=== PATIENT | male | born 1950 | race Caucasian/White ===

== ENCOUNTER 2024-06-26 15:16 | Inpatient (IN) | payer MEDICARE, OTHER, SELFPAY ==
[2024-06-26] VITALS (7 sets, daily range): BP systolic 113–126; BP diastolic 49–64; PULSE 44–99; RESP 13–16; TEMP 36.5–37; O2SAT 95–100; BMI 24.5
--- NOTE | ~2024-06-26 | CT_ITS ---
EXAMINATION: CT brain wo con DATE: 06/26/2024 17:06 INDICATION: Syncope . TECHNIQUE: Computed tomography (CT) of the head was performed without intravenous contrast. The mA wa s adjusted according to patient size. Iterative reconstruction technique was employed. The dose-lengt h product was 605.33 mGy-cm. COMPARISON: None. FINDINGS: No acute intracranial hemorrhage or extra-axial fluid collection. No hydrocephalus, mass, or herniation. No acute ischemic infarct. Unremarkable dural venous sinus attenuation. No acute osseous abnormality. Occipital scalp swelling/hematoma, to the right of midline. The aerated spaces are clear. Mild atrophy and chronic white matter change. Atherosclerotic intracranial calcifications. Focal old right basal ganglia lacunar infarct. IMPRESSION: No acute intracranial process. Reviewed, dictated and finalized at location K. NESS ADMINISTRATION PROGRAM CHAIR
--- NOTE | ~2024-06-26 | XR_ITS ---
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 RESULT: Lines, tubes, and devices: Soft tissue anchors in the left humeral head. Lungs and pleura: Clear. Calcified pulmonary granuloma. Cardiomediastinal silhouette: Normal heart size. Calcified lymph nodes. Other: No acute osseous or upper abdominal finding. IMPRESSION: No acute cardiopulmonary process. Reviewed, dictated and finalized at location K. RY MACHINE MECHANIC SUPERVISOR
--- NOTE | 2024-06-26 15:30 | ECG_ITS ---
Test Date: 2024-06-26 18:32:34 Measurements Intervals [place] Rate: 73 P: 54 NV: 196 QRS: -15 QRSD: 158 T: 65 QT: 444 QTc: 490 Interpretive Statements SINUS RHYTHM LEFT BUNDLE BRANCH BLOCK BASELINE ARTIFACT- V5-V6 ABNORMAL ECG No previous ECG available for comparison Electronically Signed On 06-26-2024 19:21:15 MANAGER RETIREMENT by Phani Peñaloza D.O.
[2024-06-26 15:46] LABS: Basophils Percent Auto 0.2 % (0.2-1.2); Eosinophils Absolute Auto 0.1 K/mm3 (0-0.3); Eosinophils Percent Auto 1.5 % (0-4.4); Hematocrit 39.3 % (42.0-52.0); Hemoglobin 13.3 g/dL (14.0-18.0); Immature Granulocyte Absolute 0.02 K/mm3 (0.00-0.031); Immature Granulocyte Percent A 0.2 % (0-0.5); Lymphocytes Absolute Auto 1.72 K/mm3 (0.9-3.2); Lymphocytes Percent Auto 21.4 % (18.3-44.2); Mean Corpuscular HGB Conc 33.8 g/dl (32-36); Mean Corpuscular Hemoglobin 32.1 pg (26-34); Mean Corpuscular Volume 94.9 fl (80-100); Mean Platelet Volume 9.8 fl (7.4-10.4); Monocytes Absolute Auto 0.9 K/mm3 (0.1-0.6); Monocytes Percent Auto 10.7 % (2.6-8.5); Neutrophils Absolute Auto 5.3 K/mm3 (1.3-6.7); Platelet Count Result 194 k/mm3 (150-375); Red Blood Count 4.14 M/mm3 (4.6-6.20); Red Cell Distribution Width 12.6 % (11.5-14.5)
--- NOTE | 2024-06-26 15:48 | ECG_ITS ---
Test Date: 2024-06-26 15:35:53 Measurements Intervals [place] Rate: 75 P: 72 MD: 202 QRS: -27 QRSD: 161 T: 70 QT: 438 QTc: 491 Interpretive Statements SINUS RHYTHM BORDERLINE AV CONDUCTION DELAY LEFT BUNDLE BRANCH BLOCK BASELINE ARTIFACT- II, III, AVF ABNORMAL ECG COMPARED WITH PRIOR ECG 06-26-24 15:23 HEART RATE HAS INCREASED SECOND DEGREE AV BLOCK NO LONGER PRESENT Electronically Signed On 06-27-2024 07:57:13 UNIX CONSULTANT by Phani Peñaloza D.O.
--- NOTE | 2024-06-26 15:52 | ED_ITS ---
HPI - Arrhythmia/Palpitations General Chief Complaint: Arrhythmia/Palpitations Stated Complaint: syncopal Time Seen by Provider: 06/26/24 15:25 History of Present Illness HPI narrative: 74-year-old male with a past medical history including hypertension, chronic left bundle branch block, hyperlipidemia. Patient takes aspirin, lipid medication, Coreg. Patient presents to the emergency room with chief complaint of a syncopal event. Patient presents via EMS. Patient was at home when he started feeling lightheaded and dizzy while he was standing and he fell from standing height. Patient does not remember the event, woke up very briefly thereafter. Complains of nauseousness and lightheadedness. Found to be bradycardic with a rate of 36 by EMS with concerns for third-degree AVB block. Patient had normal vital signs and was awake and alert, no pacing or cardioactive medications provided. He states he did not take his morning dose of Coreg and his last dose of Coreg was yesterday morning. Typically takes it b.i.d.. He received Zofran around for his nausea. Presently is denying any chest pain, shortness a breath, headache, vision changes, neck pain, abdominal pain, back pain. He states he just feels lightheaded. Denies any history of cardiac stents or IL and was otherwise in his normal state of health. Related Data Allergies Allergy/AdvReac Type Severity Reaction Status Date / Time ibuprofen AdvReac Mild Hives Verified 06/26/24 15:57 Review of Systems 2 Review of Systems: As reviewed above in HPI [facility] Past Medical History Medical History (Updated 06/26/24 @ 17:45 by JACEK BrownN-Lara) Left bundle branch block Dyslipidemia Hypertension Exam 2 Narrative: GENERAL: [Well-appearing, well-nourished, and in no acute distress.] HEAD: [Normocephalic, atraumatic.] EYES: [PERRLA and EOMI.] ENT: Nares clear, no rhinorrhea or epistaxis. Mucous membranes moist. NECK: Supple. CHEST: [Clear to auscultation. No respiratory distress.] HEART: Bradycardic rate but seemingly regular rhythm. No murmur heard. [Normal peripheral pulses.] ABDOMEN: [Soft, nondistended], [nontender], [No rigidity or guarding] EXTREMITIES: Normal range of motion. [No edema.] SKIN: Warm, dry, no rash. NEURO: [No focal deficits]. Alert and oriented [x3.] PSYCH: [Normal mood and affect.] Course Vital Signs Vital signs: Vital Signs Temperature 36.5 C 06/26/24 15:13 Pulse Rate 44 L 06/26/24 15:13 Respiratory Rate 14 06/26/24 15:13 Blood Pressure 122/55 L 06/26/24 15:13 Pulse Oximetry 100 06/26/24 15:13 Oxygen Delivery Room Air 06/26/24 15:13 Temperature 36.5 C 06/26/24 15:13 Pulse Rate 81 06/26/24 16:36 Respiratory Rate 13 06/26/24 16:36 Blood Pressure 126/64 06/26/24 16:36 Pulse Oximetry 100 06/26/24 16:36 Oxygen Delivery Room Air 06/26/24 15:13 MDM - Arrhythmia/Palpitations MDM Narrative Medical decision making narrative: 74-year-old male with a history of chronic left bundle branch block presenting to the emergency department with a syncopal event and bradycardia. He was otherwise in his normal state of health, felt lightheaded at home and fell to the ground. He woke up several seconds later and has been complain of nauseousness and feeling like he could pass out again. Was found to be bradycardic with rate in the 30s and seemingly in a AV blockade via EMS interpretation of EKG. He took his Coreg last dose yesterday morning and has not taken any additional ones today or last night. No recent changes to his medications. He is bradycardic with a palpable pulse in the 30s to 40s but is seemingly normal rhythm, extremities are warm, he is awake alert, no diaphoresis, chest pain shortness a breath. Normal blood pressure, no tachycardia, fever, hypoxia or tachypnea. EKG was obtained that shows sinus bradycardia with what appears to be a prolonged first-degree AV block and a PVC that was noted but does not appear to be any AV dissociation with regular P-waves behind each QRS and QRS complexes after each P wave. Patient was placed on supreme court justice and pads and spontaneously resolved his bradycardia and on the monitor appears to be sinus rhythm with regular rate. Repeat EKG showed at that time a left bundle branch block with sinus rhythm with no ST segment elevations, depressions or inversions, no previous EKG from prior to today to compare to but he states he has a chronic LBBB. Cardiac workup was obtained this time including serial troponins, electrolyte panel, CBC, chest x-ray. He was provided fluid bolus and Zofran here in the ED and remains asymptomatic at this time. CT of the head was obtained given the fall and syncopal event. Comparing the morphology of his present EKG with the 1 when he was bradycardic it seems like he may have had a vasovagal event as appears to have similar morphology in just a slowing of his ventricular rate, however underlying structural disease, ACS, electrolyte disturbances or other cardiac process cannot be excluded at this time and patient would likely be admitted to the hospital after completion of workup and discussion with Cardiology. Patient re-evaluated frequently and had no persistent symptoms or recurrence of his syncopal event while here in the emergency department. Negative troponin, normal electrolytes, no leukocytosis or anemia. Normal LFTs and normal renal function panel. Spoke to Cardiology Dr. Olivas and relayed the EKGs to them. There appears to be a high degree AV block with escape rhythm and no actual association between his P-waves and ventricular complexes. Recommendations to admit him to the intermediate care unit for pacemaker placement unless he becomes unstable and then he would need temporary pacing. I discussed this with the patient and the family and they were comfortable with admission. Spoke to the hospitalist team currently being covered by the midlevel provider who accepted the patient to the intermediate care unit. Admission orders were placed, consult placed, patient is stable for admission at this time. Medical Records Attestation: I reviewed the patient's medical records. Lab Data Attestation: I reviewed the patient's lab results. 06/26/24 15:41 06/26/24 15:41 Labs: Lab Results 06/26/24 Range/Units 15:41 WBC 8.0 (4.5-10.0) K/mm3 RBC 4.14 L (4.6-6.20) M/mm3 Hgb 13.3 L (14.0-18.0) g/dL Hct 39.3 L (42.0-52.0) % MCV 94.9 (80-100) fl MCH 32.1 (26-34) pg MCHC 33.8 (32-36) g/dl RDW 12.6 (11.5-14.5) % Plt Count 194 (150-375) k/mm3 MPV 9.8 (7.4-10.4) fl Immature Gran % (Auto) 0.2 (0-0.5) % Neut % (Auto) 66.0 (45.5-73.1) % Lymph % (Auto) 21.4 (18.3-44.2) % [place] % (Auto) 10.7 H (2.6-8.5) % Eos % (Auto) 1.5 (0-4.4) % Baso % (Auto) 0.2 (0.2-1.2) % Lymph # (Auto) 1.72 (0.9-3.2) K/mm3 [place] # (Auto) 0.9 H (0.1-0.6) K/mm3 Eos # (Auto) 0.1 (0-0.3) K/mm3 Baso # (Auto) 0.0 (0.0-0.1) K/mm3 Abs Immat Gran (auto) 0.02 (0.00-0.031) K/mm3 Absolute Neuts (auto) 5.3 (1.3-6.7) K/mm3 Absolute Nucleated RBC 0.000 (0.0-0.012) K/mm3 Nucleated RBC % 0.0 (0.0-0.2) % PT 13.0 (11.1-14.7) Seconds INR 0.9 APTT 22.7 (22.3-36.8) Seconds Sodium 139 (137-145) mmol/L Potassium 4.6 (3.4-5.0) mmol/L Chloride 106 (98-107) mmol/L Carbon Dioxide 23 (22-30) mmol/L Anion Gap 10 (4-12) mmol/L BUN 29 H (9-20) mg/dL Creatinine 1.16 (0.7-1.3) mg/dL Estim Creat Clear Calc 47 ml/min Estimated GFR > 60 (59 - ) Glucose 128 H (65-110) mg/dL Calcium 9.3 (8.4-10.2) mg/dL Total Bilirubin 0.6 (0.2-1.3) mg/dL AST 25 (17-59) U/L ALT 22 (6-50) U/L Alkaline Phosphatase 88 (38-126) U/L Troponin I < 0.012 (0.000-0.034) ng/mL Total Protein 7.0 (6.3-8.2) g/dL Albumin 4.0 (3.5-5.1) g/dL Lipase 90 (23-300) U/L Imaging Data Attestation: I personally reviewed and interpreted this imaging study as follows: My impression: Impressions Chest X-Ray 06/26/24 15:56 IMPRESSION: No acute cardiopulmonary process. Head CT 06/26/24 17:23 IMPRESSION: No acute intracranial process. Critical Care Time Critical Care Time Critical Care Time: Yes Total Critical Care Time: 35 Discharge Plan Discharge Clinical Impression: High degree atrioventricular block, Cardiac related syncope Patient Disposition: Still a Patient Condition: Stable Patient Language: Norwegian Follow-up/Referrals: PHYSICIAN NOT ON STAFF,NONSTAFF [Primary Care Provider] - Time of Disposition: 17:45
[2024-06-26] MEDS: Please add drug allergy info to patient profile. 1 EACH XX (15:55)
[2024-06-26 15:56] LABS: Alanine Aminotransferase 22 U/L (6-50); Alkaline Phosphatase 88 U/L (38-126); Anion Gap 10 mmol/L (4-12); Aspartate Amino Transferase 25 U/L (17-59); Bilirubin,Total 0.6 mg/dL (0.2-1.3); Blood Urea Nitrogen 29 mg/dL (9-20); Calcium 9.3 mg/dL (8.4-10.2); Carbon Dioxide 23 mmol/L (22-30); Chloride 106 mmol/L (98-107); Estimated CRCL calculation 47 ml/min; Estimated Glomerular Filt Rate > 60; Glucose 128 mg/dL (65-110); Lipase 90 U/L (23-300); Potassium 4.6 mmol/L (3.4-5.0); Sodium 139 mmol/L (137-145)
[2024-06-26 15:57] LABS: INR 0.9; Partial Thromboplastin Time 22.7 Seconds (22.3-36.8)
[2024-06-26] MEDS: ASPIRIN 81 MG CHEWABLE TABLET 324 MG PO (15:59)
--- OUTSIDE RECORDS SUMMARY | 2024-06-26 16:00 | XMS_ITS | CONTINUITY OF CARE DOCUMENT ---
Author Name aleyda aishajerrica Address Unknown Organization [facility] Address [address] [place] [address] [address] [place] [address] Phone [phone] Care Team Providers Care Transition Manager Name Role Phone Vincent RENDON, Ronak Unavailable [phone] MADYSON VELÁZQUEZ MD Unavailable MADYSON VELÁZQUEZ MD Unavailable PROBLEMS Condition Status Date Provider Notes CARDIOMYOPATHY active ? Jonathon Ko MD HTN ESSENTIAL active ? Jonathon Ko MD Hyperlipidemia, unspecified active Deidra Arambula CHF active Jonathon Ko MD LBBB active Jonathon Ko MD ENCOUNTERS Date Type Provider Location Encounter Diag nosis - In-person encounter Office Visit MADYSON VELÁZQUEZ MD [place] [facility] - In-person encounter Office Visit MADYSON VELÁZQUEZ MD [place] [facility] - In-person encounter Office Visit MADYSON VELÁZQUEZ MD [place] [facility] - In-person encounter Office Visit MADYSON VELÁZQUEZ MD [place] [facility] - In-person encounter Office Visit MADYSON VELÁZQUEZ MD [place] [facility] - In-person encounter Office Visit MADYSON VELÁZQUEZ MD [place] [facility] - In-person encounter Office Visit MADYSON VELÁZQUEZ MD [place] [facility] - In-person encounter Office Visit MADYSON VELÁZQUEZ MD [place] [facility] - In-person encounter Office Visit MADYSON VELÁZQUEZ MD [place] [facility] - In-person encounter Office Visit MADYSON VELÁZQUEZ MD [place] [facility] - In-person encounter Office Visit MADYSON VELÁZQUEZ MD [place] [facility] - In-person encounter [facility] - In-person encounter Office [facility] - In-person encounter Office [facility] - In-person encounter Office [facility] - In-person encounter Office [facility] - In-person encounter Office Visit [facility] [place] [facility] - In-person encounter Office Visit Jonathon Ko MD [place] [facility] - In-person encounter Office Visit [facility] [place] [facility] - In-person encounter Office Visit Jonathon Ko MD [place] [facility] CHFLBBB - In-person encounter Office Visit Jonathon Ko MD [place] [facility] - In-person encounter Office Visit Jonathon Ko MD [place] [facility] CARDIOMYOPATHYHTN ESSENTIALHyperlipidemia, unspecified VITAL SIGNS Date Observation Value Provider blood pressure, diastolic, left arm 77 mm [Hg] Shoaib Garrett blood pressure, systolic, left arm 128 mm [Hg] Shoaib Garrett blood pressure, diastolic, right arm 74 m m[Hg] Shoaib Garrett blood pressure, systolic, right arm 120 m m[Hg] Shoaib Garrett blood pressure, diastolic 74 mm[Hg] Florinda seph [place] blood pressure, systolic 120 mm[Hg] Daryn eph [place] pulse rate 69 /min Shoaib [place] oxygen saturation, oximetry 98 % Shoaib [place] respiratory rate E&M 16 /min Shoaib Man[place] weight E&M 152 [lb_av] Shoaib Garrett blood pressure, diastolic 77 mm[Hg] Maradiaga blood pressure, systolic 138 mm[Hg] Blaise Fowler pulse rate 76 /min Wayne Fowler oxygen saturation, oximetry 98 % Wayne Fowler respiratory rate E&M 16 /min Wayne oFwler weight E&M 150 [lb_av] Wayne Fowler weight E&M 150 [lb_av] Luly Lindsey height E&M 67 [in_i] Luly Lindsey blood pressure, diastolic 69 mm[Hg] Bravo rosas O'Navdeep blood pressure, systolic 125 mm[Hg] Swati worthington [facility] pulse rate 74 /min Peri O'Navdeep oxygen saturation, oximetry 97 % Peri O'Navdeep respiratory rate E&M 16 /min Peri O'Navdeep weight E&M 150 [lb_av] Peri O'Navdeep blood pressure, diastolic 55 mm[Hg] [place] blood pressure, systolic 108 mm[Hg] Blaise Fowler pulse rate 70 /min Wayne Fowler oxygen saturation, oximetry 100 % Wayne Fowler respiratory rate E&M 16 /min Wayne Fowler weight E&M 150 [lb_av] Wayne Fowler RESULTS Date Observation Value Provider Reference Range Interpretation Location hemoglobin A1C, blood, as % of total hemoglobin 5.3 % OF TOTAL HGB [facility] <5.7 Normal basophils as percent of blood leukocytes 0.1 % [facility] Normal eosinophils as percent of blood leukocytes 0.7 % [facility] Normal monocyte count, blood 7.6 % [facility] Normal lymphocyte count, blood 12.0 % [facility] Normal neutrophils as percent of blood leukocytes 79.6 % [facility] Normal basophils, absolute, manual 9 cells/mcL [facility] 0-200 Normal eosinophils, absolute, manual 60 cells/mcL [facility] 15-500 Normal monocytes, absolute, manual 646 cells/mcL [facility] 200-950 Normal lymphocytes, absolute 1020 CELLS/UL [facility] 850-3900 Normal Absolute Neutrophil count 6766 cells/mcL [facility] 7490-9060 Normal mean platelet volume 10.0 fL [facility] 7.5-12.5 Normal platelet count 210 THOUSAND/UL [facility] 140-400 Normal red blood cell distribution width 12.3 % [facility] 11.0-15.0 Normal mean corpuscular hemoglobin concentration, RBC 34.0 G/DL [facility] 32.0-36.0 Normal mean corpuscular hemoglobin, RBC 33.5 pg [facility] 27.0-33.0 High mean corpuscular volume, RBC 98.5 fL [facility] 80.0-100.0 Normal hematocrit, blood 39.1 % [facility] 38.5-50.0 Normal hemoglobin electrophoresis, blood 13.3 [facility] 13.2-17.1 Normal erythrocyte (RBC) count 3.97 MILLION/UL [facility] 4.20-5.80 Low leukocyte (white blood cells) count, blood 8.5 THOUSAND/UL [facility] 3.8-10.8 Normal alanine aminotransferase (SGPT), serum 17 1/L [facility] 9-46 Normal aspartate aminotransferase (SGOT), serum 20 1/L [facility] 10-35 Normal alkaline phosphatase, serum 67 1/L [facility] 40-115 Normal bilirubin, serum, total 0.6 mg/dL [facility] 0.2-1.2 Normal albumin/globulin ratio, serum 1.6 (calc) [facility] 1.0-2.5 Normal globulins, serum, total 2.6 G/DL (CALC) [facility] 1.9-3.7 Normal albumin, serum 4.1 g/dL [facility] 3.6-5.1 Normal protein, total, serum 6.7 g/dL [facility] 6.1-8.1 Normal calcium, serum 9.5 mg/dL [facility] 8.6-10.3 Normal carbon dioxide, venous blood 28 mmol/L [facility] 20-31 Normal chloride, serum 101 mmol/L [facility] 98-110 Normal potassium, serum 4.2 mmol/L [facility] 3.5-5.3 Normal sodium, serum 136 mmol/L [facility] 135-146 Normal urea nitrogen/creatinine ratio, serum NOT APPLICABLE (calc) [facility] 6-22 Estimated Glomerular Filtration Rate (calc) 84 mL/min/{1.73_ m2} [facility] > OR = 60 Normal creatinine, serum 1.05 mg/dL [facility] 0.70-1.25 Normal urea nitrogen, blood 18 mg/dL [facility] 7-25 Normal blood glucose, random 111 mg/dL [facility] 65-99 High cholesterol, non-HDL, total 110 MG/DL (CALC) [facility] Normal cholesterol/HDL ratio, serum, percent 2.7 (calc) [facility] < OR = 5.0 Normal LDL cholesterol, serum 70 MG/DL (CALC) [facility] <130 Normal triglyceride, serum, fasting 200 mg/dL [facility] <150 High HDL cholesterol, serum 63 mg/dL [facility] > OR = 40 Normal cholesterol, serum 173 mg/dL [facility] 125-200 Normal HISTORY OF MEDICATION USE Medication Status Instructions Dates Provider Indications Com ments MAGNESIUM TABLET completed 1 tablet by mouth daily - MADYSON VELÁZQUEZ MD FISH OIL 1000 MG ORAL CAPSULE completed 1 capsule by mouth daily - MADYSON VELÁZQUEZ MD VITAMIN C TABLET completed 1 tablet by mouth daily - MADYSON VELÁZQUEZ MD MULTIVITAMINS TABS completed 1 tablet by mouth daily - MADYSON VELÁZQUEZ MD LISINOPRIL 10 MG ORAL TABLET active half a TAB. twice DAILY Jonathon Ko MD SPIRONOLACTONE 25 MG ORAL TABLET active ONE TAB. DAILY Jonathon Ko MD COREG 12.5 MG ORAL TABLET active ONE TABLET TWICE DAILY MADYSON VELÁZQUEZ MD increased from 1/2 tablet daily LORAZEPAM 0.5 MG ORAL TABLET active ONE TABLET IN THE EVENING NEEDED MADYSON VELÁZQUEZ MD ASPIRIN 81 MG ORAL TABLET active ONE TAB. DAILY Navjot Augustin RN LIPITOR 10 MG ORAL TABLET active ONE TAB. DAILY Navjot Augustin RN NORVASC 10 MG ORAL TABLET completed ONE TAB. DAILY - Peri O'Navdeep LIDODERM PATCH completed to heels - Navjot Augustin RN TOPICORT CREAM completed twice daily as needed - Navjot Augustin RN DICLOFENAC POTASSIUM TABLET completed 75mg daily - Navjot Augustin RN LORAZEPAM TABLET completed 1mg daily as needed - Navjot Augustin RN ASPIRIN 81 MG ORAL TABLET completed ONE TAB. DAILY - Navjot Augustin RN LIPITOR 10 MG ORAL TABLET completed ONE TAB. DAILY - Navjot Augustin RN AMLODIPINE BESYLATE 10 MG ORAL TABLET completed 1/2 TAB.twice daily - Navjot Augustin RN SOCIAL HISTORY Date Observation Value Provider smoking status never smoker Deidra wright passive cigarette sm eugene exposure no Jonathon Ko MD social history reviewed E&M reviewed Jonathon Ko MD social history reviewed E&M reviewed Navjot Augustin RN smoking/tobacco cess ation, patient education and counseling yes Jonathon Ko MD social history reviewed E&M reviewed Jonathon Ko MD drug use none Jonathon jimenez MD social history E&M Marital Statu s: L krunal with family/friends E thnicity: Navjot Augustin RN social history reviewed E&M reviewed Navjot Augustin RN physical exercise, frequency, days per week yes [facility] caffeine use, averag e drinks per day yes [facility] alcohol use, average drinks per day none [facility] smoking status Non-smoker [facility] MENTAL STATUS Date Observation Value Provider assessment of judgme nt and insight E&M Alert and oriented to time, place and person. Mood and affect are normal. Jonathon Ko MD assessment of judgme nt and insight E&M Alert and oriented to time, place and person. Mood and affect are normal. Navjot Augustin RN assessment of judgme nt and insight E&M Alert and oriented to time, place and person. Mood and affect are normal. Jonathon Ko MD assessment of judgme nt and insight E&M Alert and oriented to time, place and person. Mood and affect are normal. Navjot Augustin RN INSURANCE PROVIDERS Payer name Policy type / Coverage type [place] [employer] party ID AARP MEDICARE ADVANTAGE ([facility] COMPLETE PPO) Other [id number] TREATMENT PLAN Date Name Complete Echo MUGA (LVEF) HISTORY OF PROCEDURES Procedure Date Procedure Name Provider Procedure Notes S dreadus EKG Jonathon Ko MD comp leted
--- OUTSIDE RECORDS SUMMARY | 2024-06-26 16:00 | XMS_ITS | Clinical Summary ---
Author Organization [facility] Address [address] [place] [address] Care Team Providers Care Electrolysis Operator Name Role Phone Unavailable Primary Care Provider Unavailabl e Source Comments [facility],non-owned Affiliates and Associated Physician Practices is amultiple site organization consisting of ambulatory clinics and hospital sitesin [place], [place], [place] and [place]. This disclosure is being madepursuant to the Care Everywhere program and may not contain all information available regarding this patient. Last updated 18.[facility] [place] Social History Tobacco Use Types Packs/Day Years Used Date Smoking Tobacco: Never Assessed Sex and Gender Information Value Date Recorded Sex Assigned at Not on file Gender Identity Not on file Sexual Orientation Not on file Plan of Treatment Health Maintenance Due Date Last Done Comments HEPATITIS C SCREENING 02/21/1966 DTAP/TDAP/TD VACCINES (1 - Tdap) 02/25/1967 PNEUMOCOCCAL VACCINE 50+ (1 of 1 - PCV) 02/25/1998 ZOSTER VACCINE (1 of 2) 02/25/1998 Respiratory Syncytial Virus (RSV) Vaccine Pt: or over 60 yrs (1 - 1-dose 75+ series) 02/25/2023 COVID-19 VACCINE ( - 2023-2 5 season) 2024 INFLUENZA VACCINE (#1) 2024 DEPRESSION SCREENING 05/19/2024 MEDICARE AWV CALENDAR YEAR 2024 HEPATITIS B VACCINE Aged Out No longe r eligible based on patient's age to complete this topic HIB VACCINE Aged Out No longer eligi ble based on patient's age to complete this topic HPV VACCINE Aged Out No longer eligi ble based on patient's age to complete this topic MENINGOCOCCAL (Group B) VACCINE Aged Out No longer eligible based on patient's age to complete this topic MENINGOCOCCAL VACCINE Aged Out No caridad molly eligible based on patient's age to complete this topic
--- OUTSIDE RECORDS SUMMARY | 2024-06-26 16:00 | XMS_ITS | Encounter Summary ---
Author Organization [facility] Address [address] [place] [address] Care Team Providers Care Interim Controller Name Role Phone Unavailable Primary Care Provider Unavailabl e Encounter Details Date Type Department Care Team (Late st Contact Info) Description 10/20/2018 Lab Requisition [facility] Care DermPath Lab [address] [place] [phone] Jorgito Car MD [address] [place] [phone] Social History Tobacco Use Types Packs/Day Years Used Date Smoking Tobacco: Never Assessed Sex and Gender Information Value Date Recorded Sex Assigned at Not on file Gender Identity Not on file Sexual Orientation Not on file documented as of this encounter Plan of Treatment Not on file documented as of this encounter Procedures Procedure Name Priority Date/Time Associated Diagnosis Comments DERMATOPATHOLOGY Routine 10/19/2018 12:0 0 AM CDT documented in this encounter Results * DERMATOPATHOLOGY (10/19/2018 12:00 AM CDT) Case Report Dermatopathology Report Case: [id number] Authorizing Provider: Jorgito Car MD Collected: 10/19/2018 12:00 AM Pathologist: Radha Ness MD Received: 10/20/2018 12:43 PM Specimen: Skin, right forehead 9 1:00 PM CDT DERMATOPATHOLOGY LABORATORY Final Diagnosis Specimen A. SKIN, right forehead: COMEDONE (L70.8) DERMAL FIBROSIS (L90.5) 9 1:00 PM CDT DERMATOPATHOLOGY LABORATORY Clinical History R/O BCC 1:00 PM CDT DERMATOPATHOLOGY LABORATORY Gross Description Specimen A: Received is one formalin filled container labeled with the patient's name and designated right forehead. The specimen consists of a shave biopsy measuring 9x6x1 mm. Jar 0. 1:00 PM CDT DERMATOPATHOLOGY LABORATORY Microscopic Description Specimen A. 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 There is focal dermal fibrosis. 1:00 PM CDT DERMATOPATHOLOGY LABORATORY Disclaimer An external and internal positive and negative controls are appropriate for the histochemical, immunohistochemical and immunofluorescence stain(s) in this case (if any), except where stated explicitly. The performance characteristics of the stain(s) cited in this report were developed and its performance characteristic determined by the Dermatopathology Laboratory at [facility], directed by Dr. Addie Ortiz. These tests need not be, and therefore are not, approved by the [place] Food and Drug Administration. The tests are used for clinical purposes. Billing Codes Specimen Charges Stain Charges 39949 1 1:00 PM CDT DERMATOPATHOLOGY LABORATORY Embedded Images 1:00 PM CDT DERMATOPATHOLOGY LABORATORY Pathology/Cytolog y TISSUE SPECIMEN FROM SKIN / Unknown 10/19/2018 10/20/2018 12:43 PM CDT Jorgito Car MD LAB - PATHOLOGY/CYTO LOGY ORDERABLES DERMATOPATHOLOGY LABORATORY [facility] - Department of Dermatology [facility] [facility] [address]th [address] [place], [place] [address] [phone] documented in this encounter Visit Diagnoses Not on filedocumented in this encounter
--- OUTSIDE RECORDS SUMMARY | 2024-06-26 16:00 | XMS_ITS | Encounter Summary ---
Author Organization [facility] Address [address] [place] [address] Care Team Providers Care Pharmacy Technician Trainee Name Role Phone Unavailable Primary Care Provider Unavailabl e Encounter Details Date Type Department Care Team (Late st Contact Info) Description 09/02/2023 Lab Requisition [facility] - DermPath Lab [address] [place] [phone] Jorgito Car MD [address] [place] [phone] Social History Tobacco Use Types Packs/Day Years Used Date Smoking Tobacco: Never Assessed Sex and Gender Information Value Date Recorded Sex Assigned at Not on file Gender Identity Not on file Sexual Orientation Not on file documented as of this encounter Plan of Treatment Not on file documented as of this encounter Procedures Procedure Name Priority Date/Time Associated Diagnosis Comments DERMATOPATHOLOGY Routine 09/01/2023 3:33 AM CDT documented in this encounter Results * DERMATOPATHOLOGY (09/01/2023 3:33 AM CDT) Case Report Dermatopathology Report Case: [id number] Authorizing Provider: Jorgito Car MD Collected: 09/01/2023 03:33 AM Ordering Location: [facility] Physician [facility] - Received: 09/02/2023 12:45 PM DermPath Lab Pathologist: Radha Ness MD Specimen: Skin, left nose 10:55 AM CDT DERMATOPATHOLOGY LABORATORY Final Diagnosis Specimen A. SKIN, left nose: BASAL CELL CARCINOMA, NODULAR TYPE (C44.311) 10:55 AM CDT DERMATOPATHOLOGY LABORATORY Clinical History Cyst r/o BCC 10:55 AM CDT DERMATOPATHOLOGY LABORATORY Gross Description Specimen A: Received is one formalin filled container labeled with the patient's name and designated left nose. The specimen consists of a shave biopsy measuring 6x5x3 mm. Jar 0. 10:55 AM T DERMATOPATHOLOGY LABORATORY Microscopic Description Specimen A. SKIN, left nose: Within the dermis there are aggregates of basaloid cells with a high nuclear to cytoplasmic ratio and peripheral palisading. 10:55 AM T DERMATOPATHOLOGY LABORATORY Disclaimer An external and internal positive and negative controls are appropriate for the histochemical, immunohistochemical and immunofluorescence stain(s) in this case (if any), except where stated explicitly. The performance characteristics of the stain(s) cited in this report were developed and its performance characteristic determined by the Dermatopathology Laboratory at [facility], directed by Dr. Addie Ortiz. These tests need not be, and therefore are not, approved by the [place] Food and Drug Administration. The tests are used for clinical purposes. Billing Codes Specimen Charges Stain Charges 10388 1 4 10:55 AM CDT DERMATOPATHOLOGY LABORATORY Embedded Images 10:55 AM T DERMATOPATHOLOGY LABORATORY Pathology/Cytolo gy TISSUE SPECIMEN FROM SKIN / Unknown 09/01/2023 3:33 AM CDT 09/02/2023 12:45 PM CDT Jorgito Car MD LAB - PATHOLOGY/CYTO LOGY ORDERABLES DERMATOPATHOLOGY LABORATORY [facility] - Department of Dermatology [address] [phone] documented in this encounter Visit Diagnoses Not on filedocumented in this encounter
--- OUTSIDE RECORDS SUMMARY | 2024-06-26 16:00 | XMS_ITS | Referral Summary ---
Author Organization [facility] Address [address] [place] [address] Care Team Providers Care Supervisor Border Department Name Role Phone Unavailable Primary Care Provider Unavailabl e Source Comments [facility],non-owned Affiliates and Associated Physician Practices is amultiple site organization consisting of ambulatory clinics and hospital sitesin [place], [place], [place] and [place]. This disclosure is being madepursuant to the Care Everywhere program and may not contain all information available regarding this patient. Last updated 18.[facility] [employer] Social History Tobacco Use Types Packs/Day Years Used Date Smoking Tobacco: Never Assessed Sex and Gender Information Value Date Recorded Sex Assigned at Not on file Gender Identity Not on file Sexual Orientation Not on file Plan of Treatment Not on file
--- OUTSIDE RECORDS SUMMARY | 2024-06-26 16:00 | XMS_ITS | Clinical Summary ---
Author Organization [address] Address [address] [place] [address] Care Team Providers Care Acoustic Intelligence Specialist Name Role Phone Mark Neely MD Primary Care Provider [phone] Allergies Active Allergy Reactions Criticality Noted Date Comments Codeine Rash Medium 03/15/2019 Oxycodone Rash Medium 08/01/2011 Medications atorvastatin (LIPITOR) 10 mg tablet Take 10 mg by mouth daily. Active carvedilol (COREG) 25 mg tablet Take 25 mg by mouth 2 (two) times a day with meals. Active spironolactone (ALDACTONE) 25 mg tablet Take 25 mg by mouth daily. Active aspirin 81 mg tablet Take 81 mg by mouth daily. Active LORazepam (ATIVAN) 0.5 mg tablet Take 0.5 mg by mouth every 6 (six) hours as needed for anxiety. Active fluticasone (FLONASE) 50 mcg/actuation nasal sprayIndication s:Allergic disorder, initial encounter Administer 2 sprays into each nostril daily 16 g 3 9 Active moxifloxacin 0.5 % drops, viscous Administer 1 drop into affected eye(s) 2 (two) times a day 1 Bottle 9 Active Active Problems Problem Noted Date Diagnosed Date Right corneal abrasion 03/23/2019 Overview (03/23/2019): Patient having a hard time with the eye drop application. He is stating that most of the medication ran off the right eye. Refer to Dr [place]. Assessment & Plan (03/23/2019 8:27 AM ADMINISTRATIVE ASSISTANT COORDINATOR): Examined under UV light after fluorescein dye application. Viral URI 08/27/2018 Agent orange exposure 08/27/2018 Left otitis media 08/27/2018 Assessment & Plan (09/01/2018 10:22 AM CDT): Tympanic membrane is abnormal with loss of hearing. No cerumen impaction. 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 To RTC or call office for further concerns. Hypertension 06/03/2018 Hyperlipidemia 06/03/2018 Cardiomyopathy 06/03/2018 Anxiety 06/03/2018 Allergic 06/03/2018 Assessment & Plan (09/01/2018 10:23 AM CDT): Advised on use of antihistamine and flonase to limit nasal allergy symptoms. At low risk for fall 06/03/2018 Immunizations Name Administration Dates Next Due Influenza, Quadrivalent, Hig h Dose, Preservative Free, Intrr 02/22/2020 Influenza, Trivalent, High D ose, Split, Preservative Free, Intramuscular 02/18/2019 Influenza, Unspecified 03/15/2019,02/17/2018, Pneumococcal Conjugate PCV 13 02/22/2016 Pneumococcal Conjugate, Unspecified 01/31/2018 Pneumococcal Polysaccharide PPV23 03/12/2017 Surgical History Surgery Date Site/Laterality Comments SHOULDER SURGERY Shoulder Surgery - (Added by TW Conv) AR REPAIR BROW PTOSIS Repair Of Brow Ptosis - (Added by TW Conv) AR BLEPHAROPLASTY UPPER EYEL ID W/EXCESSIVE SKIN Blepharoplasty Upper Lid W/ Excessive Skin - (Added by TW Conv) AR BLEPHAROPLASTY LOWER EYEL ID W/HERNIATED FAT PAD Blepharoplasty Lower Lid W/ Extensive Herniated Fat Pad - (Added by TW Conv) SHOULDER DEBRIDEMENT Medical History Medical History Date Comments Allergic Anxiety Hyperlipidemia Hypertension Cardiomyopathy (HCC) Family History Medical History Relation Name Comments Kidney failure Brother Heart disease Father Family history of cardiac disorder - (Added by TW Conv) hip surgery Mother Relation Name Status Comments Brother Alive Father Mother Social History Tobacco Use Types Packs/Day Years Used Date Smoking Tobacco: Never Smokeless Tobacco: Never Tobacco Cessation:Counseling Given: No Alcohol Use Standard Drinks/Week Comments Yes 0 (1 standard drink = 0.6 oz pur e alcohol) PHQ-2 Answer Date Recorded PHQ-2 Score 0 01/08/2019 Personal Safety Answer Date Recorded Getting School Help Needed Not on file 08/01 Sex and Gender Information Value Date Recorded Sex Assigned at Not on file Legal Sex Male 9:09 PM ADMINISTRATIVE ASSISTANT COORDINATOR Gender Identity Not on file Sexual Orientation Not on file Obstetrics History Last Filed Vital Signs Vital Sign Reading Time Taken Comments Blood Pressure 118/68 03/23/2019 8:08 AM ADMINISTRATIVE ASSISTANT COORDINATOR Pulse 76 03/23/2019 8:08 AM ADMINISTRATIVE ASSISTANT COORDINATOR Temperature 37 C (98.6 F) 03/23/2019 8:08 AM ADMINISTRATIVE ASSISTANT COORDINATOR Respiratory Rate - - Oxygen Saturation 95% 03/23/2019 8:08 AM ADMINISTRATIVE ASSISTANT COORDINATOR Inhaled Oxygen Concentration - - Weight 69.3 kg (152 lb 11.2 oz) 019 8:08 AM ADMINISTRATIVE ASSISTANT COORDINATOR Height 172.7 cm (5' 8 ) 03/23/2019 8:08 AM ADMINISTRATIVE ASSISTANT COORDINATOR Body Mass Index 23.22 03/23/2019 8:08 AM ADMINISTRATIVE ASSISTANT COORDINATOR Plan of Treatment Not on file [place] [address] Care Teams Acoustic Intelligence Specialist Relationship Specialty Start Date End Date Mark Neely MD [address] [place], [place] [phone] PCP - General Family Practice 05/28/18
--- OUTSIDE RECORDS SUMMARY | 2024-06-26 16:00 | XMS_ITS | Continuity of Care Document ---
Author Organization [facility] Address [address] [place] [address] [address] [place] [address] Phone Care Team Providers Care Academic Tutor Name Role Phone Pedro Francis Unavailable Unavailable Advance Directives Directive Yes / No Effective Date File Name No Information Encounters Encounter Description Practice Location Reason(s) For Visit Diagnoses Date Provider Providers Copied on Encounter [facility], [address] [place] [address] [address], [place], [place], [id number], [place] tel:[phone] [facility] No Information [address] Penny Vasquez. [address] , [address], [place], [address], [place]. tel:[phone] Family History Family Member Type Diagnosis Age At Onset No Information Payers Payer name Insurance type Covered constitution party ID Authoriza tion(s) [employer] SOI CI [id number] Social History Type Description Quantity Date Captured Comments Sex Male Smoking Status No Information Chief Complaint And Reason For Visit No Information Reason For Referral Reason For Referral No Information History Of Present Illness Encounter Date Complaint History Of Prese nt Illness No Information Functional Status Date Functional Assessmen t No Information Instructions Date Instruction Additional Infor mation No Information Assessments Type Assessment Date No Information Patient Care Teams Name Effective Dates (start - stop) Status Members No Information
--- OUTSIDE RECORDS SUMMARY | 2024-06-26 16:00 | XMS_ITS | Patient Health Summary ---
Author Organization [facility] Address [address] [place] [address] Care Team Providers Care Tube Cutter Operator Name Role Phone Unavailable Primary Care Provider Unavailabl e Note from [facility],non-owned Affiliates and Associated Physician Practices is amultiple site organization consisting of ambulatory clinics and hospital sitesin [place], [place], [place] and [place]. This disclosure is being madepursuant to the Care Everywhere program and may not contain all information available regarding this patient. Last updated 18.[facility] Social History Tobacco Use Types Packs/Day Years Used Date Smoking Tobacco: Never Assessed Sex and Gender Information Value Date Recorded Sex Assigned at Not on file Gender Identity Not on file Sexual Orientation Not on file Procedures * DERMATOPATHOLOGY(Performed 09/01/2023) * DERMATOPATHOLOGY(Performed 10/19/2018) * DERMATOPATHOLOGY(Performed 06/24/2011) Results * DERMATOPATHOLOGY (09/01/2023 3:33 AM CDT) Only the most recent of3 resultswithin the time period is included. Case Report Dermatopathology Report Case: [id number] Authorizing Provider: Jorgito Car MD Collected: 09/01/2023 03:33 AM Ordering Location: [facility] - Received: 09/02/2023 12:45 PM DermPath Lab Pathologist: Radha Ness MD Specimen: Skin, left nose 10:55 AM CDT DERMATOPATHOLOGY LABORATORY Final Diagnosis Specimen A. SKIN, left nose: BASAL CELL CARCINOMA, NODULAR TYPE (C44.311) 10:55 AM CDT DERMATOPATHOLOGY LABORATORY Clinical History Cyst r/o BCC 4 10:55 AM CDT DERMATOPATHOLOGY LABORATORY Gross Description Specimen A: Received is one formalin filled container labeled with the patient's name and designated left nose. The specimen consists of a shave biopsy measuring 6x5x3 mm. Jar 0. 10:55 AM [facility] DERMATOPATHOLOGY LABORATORY Microscopic Description Specimen A. SKIN, left nose: Within the dermis there are aggregates of basaloid cells with a high nuclear to cytoplasmic ratio and peripheral palisading. 4 10:55 AM [facility] DERMATOPATHOLOGY LABORATORY Disclaimer An external and internal positive and negative controls are appropriate for the histochemical, immunohistochemical and immunofluorescence stain(s) in this case (if any), except where stated explicitly. The performance characteristics of the stain(s) cited in this report were developed and its performance characteristic determined by the Dermatopathology Laboratory at [facility], directed by Dr. Addie Ortiz. These tests need not be, and therefore are not, approved by the [place] Food and Drug Administration. The tests are used for clinical purposes. Billing Codes Specimen Charges Stain Charges 48767 1 4 10:55 AM T DERMATOPATHOLOGY LABORATORY Embedded Images 10:55 AM T DERMATOPATHOLOGY LABORATORY Pathology/Cytolo gy TISSUE SPECIMEN FROM SKIN / Unknown 09/01/2023 3:33 AM CDT 09/02/2023 12:45 PM CDT Jorgito Car MD LAB - PATHOLOGY/CYTO LOGY ORDERABLES DERMATOPATHOLOGY LABORATORY [facility] - Department of Dermatology [address] [phone]
--- OUTSIDE RECORDS SUMMARY | 2024-06-26 16:00 | XMS_ITS | Clinical Summary ---
Author Organization [facility] Address [address] [place] [address] Phone Care Team Providers Care Head Resident Name Role Phone Mark Neely MD Primary Care Provider [phone] Allergies Active Allergy Reactions Criticality Noted Date Comments Oxycodone Rash Low 08/01/2011 Medications aspirin (DEREK) 81 mg Oral Tab Take by mouth daily. Active LORazepam (ATIVAN) 1 mg tablet Take 1 mg by mouth every 6 hours as needed. Active spironolactone (ALDACTONE) 25 mg tablet TAKE 1 TABLET(25 MG) BY MOUTH DAILY 90 Tablet 3 08/28/2021 Active atorvastatin (LIPITOR) 10 mg tablet Take 1 Tablet (10 mg) by mouth daily at bedtime. 90 Tablet 3 11/06/2021 Active carvediloL (COREG) 25 mg tablet TAKE 1 TABLET(25 MG) BY MOUTH TWICE DAILY WITH MEALS 180 Tablet 3 12/03/2021 Active sacubitriL-valsa rtan (ENTRESTO) 24-26 mg Tablet Take 1 Tablet by mouth 2 times daily. 180 Tablet 2 10/30/2022 Active empagliflozin (Jardiance) 10 mg tablet Take 1 Tablet (10 mg) by mouth daily in the morning. 100 Tablet 3 08/11/2023 Active Active Problems Patient Care Coordination No te Formatting of this note migh t be different from the original. Gaston Demarco MD--Senior Unix Administrator ([facility]) Problem Noted Date Diagnosed Date Other cardiomyopathies 07/23/2016 Arm pain 07/10/2012 Dilated cardiomyopathy 01/15/2011 LBBB (left bundle branch block) 01/15/2011 HTN (hypertension), benign 01/15/2011 Resolved Problems Problem Noted Date Diagnosed Date Resolved Date Nonischemic cardiomyopathy 10/28/2011 0 07/23/2016 Encounters Date Type Department Care Team Description 06/15/2024 External Device Data ST[facility] ABSTRACTION Provider, Abstract 06/01/2024 External Device Data [facility] ABSTRACTION Provider, Abstract from Last 3 Months Family History Medical History Relation Name Comments Heart Attack Father Heart Attack Mother Relation Name Status Comments Father Mother Social History Tobacco Use Types Packs/Day Years Used Date Smoking Tobacco: Never Smokeless Tobacco: Never Tobacco Cessation:Counseling Given: Not Answered Alcohol Use Standard Drinks/Week Comments No 0 (1 standard drink = 0.6 oz pur e alcohol) Sex and Gender Information Value Date Recorded Sex Assigned at Male 02/02/2024 11:07 AM CDT Legal Sex Male 6:03 AM PACKER INSPECTOR Gender Identity Male 02/02/2024 11:07 AM CDT Sexual Orientation Not on file Last Filed Vital Signs Vital Sign Reading Time Taken Comments Blood Pressure 112/60 02/09/2024 9:17 AM CDT Pulse 66 02/09/2024 9:17 AM CDT Temperature 36.6 C (97.8 F) 02/04/2022 2:05 PM CDT Respiratory Rate 18 02/04/2022 2:05 PM CDT Oxygen Saturation 95% 02/09/2024 9:17 AM CDT Inhaled Oxygen Concentration - - Weight 72.1 kg (159 lb) 02/09/2024 9:17 AM CDT Height 172.7 cm (5' 8 ) 02/09/2024 9:17 AM CDT Body Mass Index 24.18 02/09/2024 9:17 AM CDT Plan of Treatment Upcoming Encounters Date Type Department Care Team (Late st Contact Info) Description 08/09/2024 10:15 AM CDT Office Visit [facility] [place] [address] [place] [address] Gaston Demarco MD [address] [place] [address] [address] [place] [address] Health Maintenance Due Date Last Done Comments ZOSTER VACCINE (2 of 3) 03/14/2010 01/17/2010 RSV VACCINE (60+ or ) (1 - 1-dose 75+ series) 02/25/2023 INFLUENZA VACCINE (#1) 2023 3, 03/11/2022, 03/06/2021, Additional history exists DTAP/TDAP/TD VACCINES (3 - T d or Tdap) 08/28/2033 08/29/2023, 05/22/2011 PNEUMOCOCCAL VACCINE 65+ YEARS Completed 0 01/31/2018, 03/12/2017, 02/22/2016, Additional history exists Insurance [facility] [id number] Care Teams Head Resident Relationship Specialty Start Date End Date Mark Neely MD [address] [place] [phone] PCP - General Family Practice 07/29/18
--- OUTSIDE RECORDS SUMMARY | 2024-06-26 16:00 | XMS_ITS | Referral Summary ---
Author Organization [address] Address [address] [place] [address] Care Team Providers Care State Director Name Role Phone Mark Neely MD Primary Care Provider [phone] Allergies Active Allergy Reactions Criticality Noted Date [...] [place]. Assessment & Plan (03/23/2019 8:27 AM PAGINATOR): Examined under UV light after fluorescein dye application. Viral URI 08/27/2018 Agent orange exposure 08/27/2018 Left otitis media 08/27/2018 Assessment & Plan (09/01/2018 10:22 AM CDT): Tympanic membrane is abnormal with loss of hearing. No cerumen impaction. 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 Comfort measures discussed to [...] Conjugate, Unspecified 01/31/2018 Pneumococcal Polysaccharide PPV23 03/12/2017 Social History Tobacco Use Types Packs/Day Years [...] on file Legal Sex Male 9:09 PM PAGINATOR Gender Identity Not on file Sexual Orientation Not on file Last Filed Vital Signs Vital Sign Reading Time Taken Comments Blood Pressure 118/68 03/23/2019 8:08 AM PAGINATOR Pulse 76 03/23/2019 8:08 AM PAGINATOR Temperature 37 C (98.6 F) 03/23/2019 8:08 AM PAGINATOR Respiratory Rate - - Oxygen Saturation 95% 03/23/2019 8:08 AM PAGINATOR Inhaled Oxygen Concentration - - Weight 69.3 kg (152 lb 11.2 oz) 03/23/2019 8:08 AM PAGINATOR Height 172.7 cm (5' 8 ) 03/23/2019 8:08 AM PAGINATOR Body Mass Index 23.22 03/23/2019 8:08 AM PAGINATOR Plan of Treatment Not on file Insurance [facility] Address: [facility] [address] [place] [address] Care Teams State Director Relationship Specialty Start Date End Date Mark Neely MD [address] [place] [id number] PCP - General Family Practice 05/28/18
[2024-06-26 16:08] LABS: Troponin I < 0.012 ng/mL (0.000-0.034)
--- NOTE | 2024-06-26 17:01 | PC.NURSE ---
Patient began vomiting in cat scan so Dr Fernando gave verbal order for 4mg zofran
[2024-06-26] MEDS: ONDANSETRON INJ 4 MG/2 ML VIAL IV PUSH (17:04)
--- NOTE | 2024-06-26 17:40 | P.HP_ITS ---
H&P: HPI History of Present Illness Date/Time: 06/26/24 17:40 Chief Complaint: Syncope, arrhythmia Narrative: This very pleasant 74 year old male pt with PMH of HTN, HLD, Heart Failure w/last measured EF reportedly 35-40% according to pt but previously 20% prior to that and a known chronic LBBB, comes to the ER by EMS with complaints of having a syncopal episode today at home. Pt endorses that while standing, he became dizzy and lightheaded and fell from the standing position. He has no memory of the event from that point on, but after coming to he felt nauseated and remained dizzy. EMS believed pt to have a 3rd degree heart block, but there was noted association between p-waves and complexes so ER advised no pacing or pharmacological treatment in route. Pt does routinely take Carvedilol BID, but has not taken any since yesterday morning. He denied any acute symptoms of CP, dyspnea, or any other acute complaints other than those mentioned. Pt has no historical data here at this facility for comparison. His Applied Behavior Science Specialist is Dr. Demarco at [facility]. Pt lives at [facility] and was just here visiting today. He is a non-smoker, does not drink alcohol and does not partake of Illicit substances. His family is accompanying him and all deemed to be reliable historians. In emergency room patient was found to have a pulse in the 40s. EKG demonstrating sinus bradycardia with first-degree AV block and a PVC. No evidence of third-degree heart block is present. Patient's EKG than change spontaneously and repeat EKG demonstrating a left bundle-branch block without any ischemic changes. Labs were queried and are notable for a normal CBC, normal coags, unremarkable metabolic panel, normal lipase and negative troponins. ED physician suspected vasovagal syncope. Cardiology was consulted and after expert review of EKG by Cardiology it is believed that patient actually had an escape rhythm with a high degree AV block. He is being admitted to IMU NPO in this setting for placement of a pacemaker tomorrow by Dr. Shahab Garcia. Pt's home medication list was visualized and he takes: Carvedilol 25 mg BID, Aspirin 81 mg Daily, Jardiance, Entresto 1/2 tab BID, Atorvastatin 10 mg daily, and Spironolactone 25 mg daily. Review of Systems Review of Systems: All systems reviewed & are unremarkable except as noted in HPI and below REPLACED BY [facility] Past Medical History Medical History (Updated 06/26/24 @ 18:28 by KIARA Brown) Heart failure Syncope and collapse AV block Left bundle branch block Dyslipidemia Hypertension Surgical History Surgical History (Updated 06/26/24 @ 18:19 by KIARA Brown) S/P rotator cuff repair Social History Social History (Updated 06/26/24 @ 18:19 by IKARA Brown) Smoking status: Never smoker Alcohol intake: never Substance use: never Do You Feel Safe in your Home?: Yes Lack of Transportation: No Lack of Food: Never True Current Housing: I Have Housing Meds Home Medications and Allergies Allergies Allergy/AdvReac Type Severity Reaction Status Date / Time ibuprofen AdvReac Mild Hives Verified 06/26/24 15:57 Vital Signs Vital Signs - 24 hr 06/26/24 15:13 06/26/24 16:36 Temperature 97.7 F Pulse Rate 44 L 81 Respiratory Rate 14 13 Blood Pressure 122/55 L 126/64 Pulse Oximetry 100 100 Oxygen Delivery Room Air Exam Const: General: comfortable and no acute distress Other: Pleasant, elderly male lying supine on stretcher in no acute distress. HENMT: Mouth: Yes moist mucous membranes Eyes: General: appearance normal, both eyes and all related structures Neck: Neck: supple and no JVD Other: Full PROM Resp: Effort & Inspection: normal respiratory effort Auscultation: clear to auscultation bilaterally Cardio: Rate: regular rate Rhythm: abnormal rhythm irregularly irregular Heart sounds: no gallops, no murmurs and no rubs GI: Inspection: non-distended GI Palp: Yes Soft to palpation and No Tenderness to palpation present (GI) Auscultation: normal bowel sounds Skin: General skin exam: normal color, no rashes or lesions noted and no erythema Lesions: no lesions noted Neuro: Speech: normal speech Motor exam (neuro): 5/5 motor strength present throughout and Normal motor muscle tone present throughout Sensory Exam: normal sensation Extrem: Other: Full PROM present of all four extremities Psych: Mental Status: mental status grossly normal Affect: normal affect Attitude: not belligerent H&P: Results Labs Labs: Short CBC 06/26/24 Range/Units 15:41 WBC 8.0 (4.5-10.0) K/mm3 Hgb 13.3 L (14.0-18.0) g/dL Hct 39.3 L (42.0-52.0) % Plt Count 194 (150-375) k/mm3 BMP 06/26/24 15:41 Sodium 139 Potassium 4.6 Chloride 106 Carbon Dioxide 23 BUN 29 H Creatinine 1.16 Glucose 128 H Calcium 9.3 Cardiac Enzymes 06/26/24 Range/Units 15:41 Troponin I < 0.012 (0.000-0.034) ng/mL Liver Function 06/26/24 Range/Units 15:41 Total Bilirubin 0.6 (0.2-1.3) mg/dL AST 25 (17-59) U/L ALT 22 (6-50) U/L Alkaline Phosphatase 88 (38-126) U/L Albumin 4.0 (3.5-5.1) g/dL Assessment and Plan Assessment and plan (1) AV block: Code(s): I44.30 - Unspecified atrioventricular block Status: Acute Assessment and Plan: * EKG and telemetry reviewed by Applied Behavior Science Specialist, Dr. Cat, and will have Pacemaker placed tomorrow unless further episodes of heart block overnight. * Admitting to IMU * Telemetry * Remain NPO * ECHO ordered. (2) Syncope and collapse: Code(s): R55 - Syncope and collapse Status: Acute Assessment and Plan: * See #1 * Head CT negative * Fall precautions (3) Hypertension: Code(s): I10 - Essential (primary) hypertension Status: Chronic Assessment and Plan: * Monitor and trend VS and restart home medications when appropriate and when confirmed. (4) Dyslipidemia: Code(s): E78.5 - Hyperlipidemia, unspecified Status: Chronic Assessment and Plan: * Resume Atorvastatin when appropriate and when dose is confirmed * Heart Healthy diet when able to eat. (5) Left bundle branch block: Code(s): I44.7 - Left bundle-branch block, unspecified Status: Acute Assessment and Plan: * Chronically known history * Telemetry in IMU * Stephania to place Pacemaker tomorrow. (6) Heart failure: Code(s): I50.9 - Heart failure, unspecified Status: Chronic Assessment and Plan: * Reported EF of 35-40% per pt and prior to initiation of Entresto, Jardiance, and Beta blockade was 20%. * Applied Behavior Science Specialist is Dr. Demarco at [facility]. * No ECHO performed for past 3-4 years. * ECHO with bubble study ordered here. Plan Admit Inpt to IMU NPO SCD's OR tomorrow for pacemaker placement. Quality VTE Prophylaxis VTE prophylaxis: mechanical ordered Hospitalist MIPS Advance Care Plan I have confirmed that the patient's Advanced Care Plan is present, code status is documented, or surrogate decision maker is listed in patient medical record.: Yes Medication Reconciliation I have utilized all available resources to obtain, update and review the patients current medications (includes all prescriptions, OTC, herbals, cannabis, and nutritional supplements).: Yes
--- NOTE | 2024-06-26 18:22 | ECG_ITS ---
Test Date: 2024-06-26 15:23:25 Measurements Intervals [place] Rate: 39 P: 66 TN: 222 QRS: -34 QRSD: 152 T: 50 QT: 525 QTc: 426 Interpretive Statements SINUS RHYTHM WITH SLOW VENTRICULAR RESPONSE WITH SECOND DEGREE AV BLOCK, TYPE II LEFT AXIS DEVIATION LEFT BUNDLE BRANCH BLOCK BASELINE ARTIFACT- I, II, III, AVR, AVL, AVF, V4-V6 ABNORMAL ECG No previous ECG available for comparison Electronically Signed On 06-27-2024 07:55:23 [employer] by Phani Peñaloza D.O.
[2024-06-26 18:57] LABS: Troponin I < 0.012 ng/mL (0.000-0.034)
--- NOTE | 2024-06-26 21:14 | ADMGEN ---
This patient, Arie Bustos, was admitted to IMU Room 202-. Patient/family oriented to hospital policies and general routines including ID bracelet, bed and alarms, visiting hours, pain management, procedures, bathroom and other care routines, personal items, smoking policy, room service/diet, and visiting hours. Information on how to activate the Rapid Response Team has been discussed. Patient/Family are encouraged to report perceived risks to care and to ask questions if they do not understand what they are told or what they should do.
[2024-06-26 23:34] LABS: Troponin I < 0.012 ng/mL (0.000-0.034)
[2024-06-27] VITALS (16 sets, daily range): BP systolic 118–143; BP diastolic 55–68; PULSE 64–91; RESP 16–20; TEMP 36.6–37.1; O2SAT 94–99
[2024-06-27 04:31] LABS: Basophils Percent Auto 0.1 % (0.2-1.2); Eosinophils Absolute Auto 0.1 K/mm3 (0-0.3); Eosinophils Percent Auto 0.6 % (0-4.4); Hematocrit 37.7 % (42.0-52.0); Hemoglobin 12.5 g/dL (14.0-18.0); Immature Granulocyte Absolute 0.03 K/mm3 (0.00-0.031); Immature Granulocyte Percent A 0.3 % (0-0.5); Lymphocytes Absolute Auto 1.57 K/mm3 (0.9-3.2); Lymphocytes Percent Auto 18.2 % (18.3-44.2); Mean Corpuscular HGB Conc 33.2 g/dl (32-36); Mean Corpuscular Hemoglobin 31.7 pg (26-34); Mean Corpuscular Volume 95.7 fl (80-100); Mean Platelet Volume 9.6 fl (7.4-10.4); Monocytes Absolute Auto 0.9 K/mm3 (0.1-0.6); Monocytes Percent Auto 10.8 % (2.6-8.5); Neutrophils Absolute Auto 6.1 K/mm3 (1.3-6.7); Platelet Count Result 169 k/mm3 (150-375); Red Blood Count 3.94 M/mm3 (4.6-6.20); Red Cell Distribution Width 12.9 % (11.5-14.5); White Blood Count 8.7 K/mm3 (4.5-10.0)
[2024-06-27 04:48] LABS: Alanine Aminotransferase 21 U/L (6-50); Albumin Level 3.6 g/dL (3.5-5.1); Alkaline Phosphatase 85 U/L (38-126); Anion Gap 8 mmol/L (4-12); Aspartate Amino Transferase 23 U/L (17-59); Bilirubin,Total 0.7 mg/dL (0.2-1.3); Blood Urea Nitrogen 26 mg/dL (9-20); Carbon Dioxide 23 mmol/L (22-30); Chloride 108 mmol/L (98-107); Estimated CRCL calculation 46 ml/min; Estimated Glomerular Filt Rate > 60; Glucose 93 mg/dL (65-110); Magnesium 2.1 mg/dL (1.6-2.3); Potassium 4.1 mmol/L (3.4-5.0); Sodium 139 mmol/L (137-145)
--- NOTE | 2024-06-27 09:46 | P.PNIM_ITS ---
Progress Note: A&P Assessment and Plan (1) Hypertension: Code(s): I10 - Essential (primary) hypertension Status: Chronic (2) Heart failure: Code(s): I50.9 - Heart failure, unspecified Status: Chronic (3) Left bundle branch block: Code(s): I44.7 - Left bundle-branch block, unspecified Status: Acute (4) AV block: Code(s): I44.30 - Unspecified atrioventricular block Status: Acute (5) Dyslipidemia: Code(s): E78.5 - Hyperlipidemia, unspecified Status: Chronic (6) Syncope and collapse: Code(s): R55 - Syncope and collapse Status: Acute Plan (1) AV block: Code(s): I44.30 - Unspecified atrioventricular block Status: Acute Assessment and Plan: EKG showed sinus bradycardia, av block type 2 Mobitz 2 Patient has syncope 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 off for pacemaker placement Echo pending (2) Syncope and collapse: Code(s): R55 - Syncope and collapse Status: Acute Assessment and Plan: Cardiogenic syncope due to high-grade AV block Bed rest Telemetry monitoring (3) Hypertension: Code(s): I10 - Essential (primary) hypertension Status: Chronic Assessment and Plan: Stable Avoid beta-shanique and calcium channel shanique before pacemaker placement (4) Dyslipidemia: Code(s): E78.5 - Hyperlipidemia, unspecified Status: Chronic Assessment and Plan: * Resume Atorvastatin when appropriate and when dose is confirmed * Heart Healthy diet when able to eat.(5) Left bundle branch block: Code(s): * Chronic systolic Heart failure: Code(s): I50.9 - Heart failure, unspecified Status: Chronic Assessment and Plan: Reported EF of 35-40% per pt and prior to initiation of Entresto, Jardiance, and Beta blockade was 20%. Repeat echocardiogram Plan Admit Inpt to IMU NPO SCD's OR tomorrow for pacemaker placement. Subjective Date/time seen: 06/27/24 09:46 Interval history: I saw exam patient today, patient denies lightheadedness, palpitation, shortness breath, focal weakness Exam Narrative: GENERAL: Pleasant, in no acute distress. Well-nourished. - EYES: EOMI. Anicteric. - HENT: Moist mucous membranes. - LUNGS: Clear to auscultation bilateral ly, no wheezing, rhonchi, or rales. - CARDIOVASCULAR: Regular rate and rhyth m. No murmur. No JVD. - ABDOMEN: Soft, non-tender and non-dist ended. No palpable masses. - EXTREMITIES: No edema. Peripheral puls es 2+. Non-tender. - NEUROLOGIC: No focal neurological defi cits. CN II-XII grossly intact. - PSYCHIATRIC: Awake, Alert and oriented x 3. Appropriate mood and affect. - SKIN: No rashes or lesions. Warm. - LYMPH: No cervical lymphadenopathy. Objective Data Vital Signs Vital Signs: Vital Signs - 24 hr 06/26/24 15:13 06/26/24 16:36 06/26/24 17:53 Temperature 97.7 F Pulse Rate 44 L 81 99 Respiratory Rate 14 13 16 Blood Pressure 122/55 L 126/64 113/58 L Pulse Oximetry 100 100 97 Oxygen Delivery Room Air 06/26/24 18:35 06/26/24 20:30 06/26/24 20:55 Temperature 98.6 F Pulse Rate 74 77 77 Respiratory Rate 16 16 16 Blood Pressure 114/58 L 119/55 L 125/49 L Pulse Oximetry 96 95 96 Oxygen Delivery 06/26/24 22:00 06/27/24 00:00 06/27/24 00:04 Temperature 98.6 F Pulse Rate 77 76 73 Respiratory Rate 16 Blood Pressure 120/55 L Pulse Oximetry 99 Oxygen Delivery 06/27/24 02:00 06/27/24 04:00 06/27/24 06:00 Temperature Pulse Rate 70 91 88 Respiratory Rate Blood Pressure Pulse Oximetry Oxygen Delivery 06/27/24 06:30 06/27/24 08:00 Temperature 98.7 F 98.2 F Pulse Rate 69 74 Respiratory Rate 16 16 Blood Pressure 120/60 126/59 L Pulse Oximetry 96 95 Oxygen Delivery Intake/Output Intake/Output: Intake & Output 06/24/24 06/25/24 06/26/24 06/27/24 23:59 23:59 23:59 23:59 Output Total 500 Balance -500 Meds/Results Medications: Active Medications Generic Name Dose Route Start Last Admin Trade Name Freq PRN Reason Stop Dose Admin Acetaminophen 650 mg 06/26/24 17:38 Acetaminophen 325 Mg Tablet PO Q4H PRN Mild Pain (1-3) or Fever Ondansetron HCl 4 mg 06/26/24 17:38 Ondansetron Inj 4 Mg/2 Ml Vial IV PUSH Q4H PRN Nausea Perflutren Lipid Microsphere 0 ml 06/26/24 18:18 Perflutren Lipid Microspheres 1.5 Ml Vial Diluted To 10 Ml Total Volume IV PUSH 06/29/24 18:18 ONCE PRN adequate visualization Protocol Radiology Results: ITS Impressions Chest X-Ray 06/26/24 15:56 IMPRESSION: No acute cardiopulmonary process. Head CT 06/26/24 17:23 IMPRESSION: No acute intracranial process. Labs Labs: Laboratory Results - last 24 hr 06/26/24 06/26/24 06/26/24 15:41 18:27 22:44 WBC 8.0 RBC 4.14 L Hgb 13.3 L Hct 39.3 L MCV 94.9 MCH 32.1 MCHC 33.8 RDW 12.6 Plt Count 194 MPV 9.8 Immature Gran % (Auto) 0.2 Neut % (Auto) 66.0 Lymph % (Auto) 21.4 [place] % (Auto) 10.7 H Eos % (Auto) 1.5 Baso % (Auto) 0.2 Lymph # (Auto) 1.72 [place] # (Auto) 0.9 H Eos # (Auto) 0.1 Baso # (Auto) 0.0 Abs Immat Gran (auto) 0.02 Absolute Neuts (auto) 5.3 Absolute Nucleated RBC 0.000 Nucleated RBC % 0.0 PT 13.0 INR 0.9 APTT 22.7 Sodium 139 Potassium 4.6 Chloride 106 Carbon Dioxide 23 Anion Gap 10 BUN 29 H Creatinine 1.16 Estim Creat Clear Calc 47 Estimated GFR > 60 Glucose 128 H Calcium 9.3 Magnesium Total Bilirubin 0.6 AST 25 ALT 22 Alkaline Phosphatase 88 Troponin I < 0.012 < 0.012 < 0.012 Total Protein 7.0 Albumin 4.0 Lipase 90 06/27/24 04:09 WBC 8.7 RBC 3.94 L Hgb 12.5 L Hct 37.7 L MCV 95.7 MCH 31.7 MCHC 33.2 RDW 12.9 Plt Count 169 MPV 9.6 Immature Gran % (Auto) 0.3 Neut % (Auto) 70.0 Lymph % (Auto) 18.2 L [place] % (Auto) 10.8 H Eos % (Auto) 0.6 Baso % (Auto) 0.1 L Lymph # (Auto) 1.57 [place] # (Auto) 0.9 H Eos # (Auto) 0.1 Baso # (Auto) 0.0 Abs Immat Gran (auto) 0.03 Absolute Neuts (auto) 6.1 Absolute Nucleated RBC 0.000 Nucleated RBC % 0.0 PT INR APTT Sodium 139 Potassium 4.1 Chloride 108 H Carbon Dioxide 23 Anion Gap 8 BUN 26 H Creatinine 1.17 Estim Creat Clear Calc 46 Estimated GFR > 60 Glucose 93 Calcium 9.0 Magnesium 2.1 Total Bilirubin 0.7 AST 23 ALT 21 Alkaline Phosphatase 85 Troponin I Total Protein 7.0 Albumin 3.6 Lipase
--- NOTE | 2024-06-27 11:34 | P.CONCA_ITS ---
Assessment and Plan Assessment and plan (1) AV block: Code(s): I44.30 - Unspecified atrioventricular block Status: Acute Plan Transient complete heart block with syncope History of cardiomyopathy that recovered Left bundle-branch block Plan Hold carvedilol Transthoracic echocardiogram NPO for possible pacemaker tomorrow Continue Coreg, spironolactone under Jardiance History of Present Illness History of Present Illness Consult date/time: 06/27/24 11:34 Reason For Visit: High degree AV block, Need for pacemaker, Syncope Narrative: 74-year-old male patient presents to the hospital with acute onset transient loss of consciousness. Patient was walking when suddenly lost consciousness and fell backward hit his head. His son was present within seconds from the fall. He mentioned that his father regained consciousness within 1 minute. He did not have any signs of weakness, or change in his facial features after waking up. He denied any abnormal movements. Patient had no prior similar episode. Patient has history of cardiomyopathy in the past with left bundle branch block that resolved in 2011. He has been on medications since then including carvedilol. When EMS arrived heart rate was in the 30s. I personally reviewed the EMR record 8 showed complete heart block. Review of Systems 2 Review of Systems: All systems reviewed & are unremarkable except as noted in HPI and below PMFSH Past Medical History Medical History (Updated 06/26/24 @ 18:28 by KIARA Brown) Heart failure Syncope and collapse AV block Left bundle branch block Dyslipidemia Hypertension Surgical History Surgical History (Updated 06/26/24 @ 18:19 by KIARA Brown) S/P rotator cuff repair Family History Family History (Updated 06/26/24 @ 21:21 by Kailash Martins RN) Father Heart attack Unknown No problems noted. Son No problems noted. Other Throat cancer Social History Social History (Updated 06/26/24 @ 18:19 by KIARA Brown) Smoking status: Never smoker Alcohol intake: former Substance use: never Substance use type: does not use Do You Feel Safe in your Home?: Yes Lack of Transportation: No Lack of Food: Never True Current Housing: I Have Housing Concerned About Future Housing: No Difficulty Paying Gas/Electric Bills: No Difficulty Paying for Meds: No Currently Unemployed: No Education: Master's Degree or Higher Difficulty w/ Childcare or Family Care: No Spiritual care concerns: No Meds Home Medications and Allergies Home Medications ?Medication ?Instructions ?Recorded ?Confirmed ?Type aspirin 81 mg capsule 81 mg PO HS 06/26/24 06/26/24 History atorvastatin 10 mg tablet (Lipitor) 10 mg PO HS 06/26/24 06/26/24 History carvedilol 25 mg tablet (Coreg) 25 mg PO BID 06/26/24 06/26/24 History empagliflozin 10 mg tablet 10 mg PO DAILY 06/26/24 06/26/24 History sacubitril 49 mg-valsartan 51 mg 0.5 tablet PO BID 06/26/24 06/26/24 History tablet (Entresto) spironolactone 25 mg tablet 25 mg PO DAILY 06/26/24 06/26/24 History (Aldactone) Allergies Allergy/AdvReac Type Severity Reaction Status Date / Time ibuprofen AdvReac Mild Hives Verified 06/26/24 15:57 Vital Signs Vital Signs - 24 hr 06/26/24 15:13 06/26/24 16:36 06/26/24 17:53 Temperature 36.5 C Pulse Rate 44 L 81 99 Respiratory Rate 14 13 16 Blood Pressure 122/55 L 126/64 113/58 L Pulse Oximetry 100 100 97 Oxygen Delivery Room Air 06/26/24 18:35 06/26/24 20:30 06/26/24 20:55 Temperature 37.0 C Pulse Rate 74 77 77 Respiratory Rate 16 16 16 Blood Pressure 114/58 L 119/55 L 125/49 L Pulse Oximetry 96 95 96 Oxygen Delivery 06/26/24 22:00 06/27/24 00:00 06/27/24 00:04 Temperature 37.0 C Pulse Rate 77 76 73 Respiratory Rate 16 Blood Pressure 120/55 L Pulse Oximetry 99 Oxygen Delivery 06/27/24 02:00 06/27/24 04:00 06/27/24 06:00 Temperature Pulse Rate 70 91 88 Respiratory Rate Blood Pressure Pulse Oximetry Oxygen Delivery 06/27/24 06:30 06/27/24 08:00 Temperature 37.1 C 36.8 C Pulse Rate 69 74 Respiratory Rate 16 16 Blood Pressure 120/60 126/59 L Pulse Oximetry 96 95 Oxygen Delivery Exam 2 Const: General: comfortable and no acute distress Other: Able to lie flat HENMT: Face/Nose/Sinus: Normal nares present and no epistaxis Mouth: Yes moist mucous membranes Eyes: Sclera: sclerae normal Pupils: Equal, round and reactive pupils present Neck: Neck: supple and no JVD Carotids: no bruits Resp: Auscultation: clear to auscultation bilaterally and lung sounds not diminished Other: No chest wall tenderness Cardio: Rate: regular rate Rhythm: regular rhythm Heart sounds: no gallops, no murmurs and no rubs GI: GI Palp: Yes Soft to palpation and No Tenderness to palpation present (GI) Auscultation: normal bowel sounds Skin: General skin exam: normal color, rashes and/or lesions noted and no erythema Other: Warm Neuro: Cranial nerves: Yes Equal, round and reactive pupils present Speech: normal speech Other: No obvious focal deficit or facial asymmetry Extrem: General: no edema Other: Normal capillary refills Intact distal pulses. Results Labs and Meds 06/27/24 04:09 06/27/24 04:09 Lab results: Cardiac Enzymes 06/26/24 06/26/24 06/26/24 Range/Units 15:41 18:27 22:44 AST 25 (17-59) U/L Troponin I < 0.012 < 0.012 < 0.012 (0.000-0.034) ng/mL 06/27/24 Range/Units 04:09 AST 23 (17-59) U/L Troponin I (0.000-0.034) ng/mL Coagulation 06/26/24 Range/Units 15:41 PT 13.0 (11.1-14.7) Seconds APTT 22.7 (22.3-36.8) Seconds CBC 06/26/24 06/27/24 Range/Units 15:41 04:09 WBC 8.0 8.7 (4.5-10.0) K/mm3 RBC 4.14 L 3.94 L (4.6-6.20) M/mm3 Hgb 13.3 L 12.5 L (14.0-18.0) g/dL Hct 39.3 L 37.7 L (42.0-52.0) % Plt Count 194 169 (150-375) k/mm3 Lymph # (Auto) 1.72 1.57 (0.9-3.2) K/mm3 [place] # (Auto) 0.9 H 0.9 H (0.1-0.6) K/mm3 Eos # (Auto) 0.1 0.1 (0-0.3) K/mm3 Baso # (Auto) 0.0 0.0 (0.0-0.1) K/mm3 Comprehensive Metabolic Panel 06/26/24 06/27/24 Range/Units 15:41 04:09 Sodium 139 139 (137-145) mmol/L Potassium 4.6 4.1 (3.4-5.0) mmol/L Chloride 106 108 H (98-107) mmol/L Carbon Dioxide 23 23 (22-30) mmol/L BUN 29 H 26 H (9-20) mg/dL Creatinine 1.16 1.17 (0.7-1.3) mg/dL Glucose 128 H 93 (65-110) mg/dL Calcium 9.3 9.0 (8.4-10.2) mg/dL AST 25 23 (17-59) U/L ALT 22 21 (6-50) U/L Alkaline Phosphatase 88 85 (38-126) U/L Total Protein 7.0 7.0 (6.3-8.2) g/dL Albumin 4.0 3.6 (3.5-5.1) g/dL Intake and Output 06/26/24 06/27/24 06/27/24 23:59 07:59 15:59 Output Total 500 Balance -500 Output: Urine 500 Other: Intake, Other Source NPO Patient Weight 06/27/24 23:59 Weight 73.3 kg
[2024-06-27] MEDS: ASPIRIN 81 MG CHEWABLE TABLET PO (20:24)
[2024-06-27] MEDS: SACUBITRIL/VALSARTAN 24-26 MG TABLET 1 TAB PO (20:24)
[2024-06-27] MEDS: ATORVASTATIN 10 MG TABLET PO (20:24)
[2024-06-28] VITALS (12 sets, daily range): BP systolic 116–134; BP diastolic 53–62; PULSE 69–749; RESP 18–20; TEMP 36.3–37; O2SAT 94–98
--- NOTE | 2024-06-28 | ECHO_ITS ---
Patient Info Name: Arie Bustos Age: 74 years : 1950 Gender: Male Ht: 69 in Wt: 161 lbs BSA: 1.89 m2 HR: 84 bpm BP: 134 / 59 mmHg Heart Rhythm: Sinus Rhythm Technical Quality: Good Exam Date: 06/28/2024 7:59 AM Exam Location: Echo Lab Patient Status: Inpatient Admit Date: 06/26/2024 Staff Ordering Physician: Cesario Cat MD Welder Helper: Maday Boudreaux RDCS Attending Provider: Robinson Prado MD Exam Type: CA echo dop color flow w con Study Info Indications - Cardiomyopathy Complete two-dimensional, color flow and Doppler transthoracic echocardiogram is performed with contrast to opacify the left ventricle and to improve the deliniation of the left ventricle endocardial borders. Contrast/Agitated Saline Contrast/Ag. Saline: Definity Amount: 2.00 ml Administered By: Maday Boudreaux RDCS Existing IV Access: Yes IV Access Condition: patent with no signs of infiltration Summary 1. The left ventricle is normal in size with moderately reduced systolic function. The left ventricular ejection fraction is visually estimated to be 35-40%. 2. Abnormal septal motion consistent with a bundle branch block. 3. The aortic valve is not well visualized otherwise there is no significant valvular disease. Left Ventricle The left ventricle is normal in size with moderately reduced systolic function. The left ventricular ejection fraction is visually estimated to be 35-40%. Abnormal septal motion consistent with a bundle branch block. Right Ventricle The right ventricle is normal in size and systolic function. Left Atria The left atrium is normal size. Right Atria The right atrium is normal size. Atrial Septum The atrial septum is visually intact. Aortic Valve The aortic valve is not well visualized however the gradients across the valve does not suggest hemodynamically significant stenosis. There is no aortic regurgitation. Pulmonic Valve The pulmonic valve is grossly normal. There is no color Doppler evidence of pulmonic valve regurgitation. Mitral Valve The mitral valve is normal. There is trace mitral regurgitation. Tricuspid Valve The tricuspid valve is normal. There is trace tricuspid regurgitation. Pericardium/Pleural Pericardium is normal in appearance with no evidence for significant pericardial effusion. Inferior Vena Cava Normal inferior vena cava with >50% collapse upon inspiration consistent with normal right atrial pressure, 3 mmHg. Aorta The aortic root at the level of the sinus of Valsalva measures 3.3 cm in diameter. Left Ventricular Outflow Tract Name Value Normal LVOT 2D LVOT Diameter 2.10 cm LVOT Doppler LVOT Peak Gradient 4 mmHg LVOT Mean Gradient 2 mmHg LVOT VTI 17.29 cm LVOT VTI/AV VTI Ratio 0.49 LVOT Stroke Volume 60.12 ml LVOT CO 4.10 l/min LVOT CI 2.17 L/min/m2 Pulmonic Valve Name Value Normal RVOT Doppler RVOT Peak Gradient 2 mmHg PV Doppler PV Peak Gradient 5 mmHg Mitral Valve Name Value Normal MV Doppler MV Decel [place] 275.15 cm/s2 MV PHT 0 s MV Area (PHT) 3.65 cm2 4.00-5.00 MV Diastolic Function MV E Peak Velocity 57.21 cm/s MV A Peak Velocity 75.56 cm/s MV E/A 0.76 MV Decel Time 0 s MV Annular TDI MV E/e' (Septal) 9.78 <=8.00 MV E/e' (Lateral) 7.42 <=8.00 MV E/e' (Average) 8.60 Tricuspid Valve Name Value Normal TV Regurgitation Doppler TR Peak Velocity 205.05 cm/s TR Peak Gradient 16 mmHg Estimated PAP/RSVP RA Pressure 3 mmHg <=5 PA Systolic Pressure 20 mmHg <36 RV Systolic Pressure 20 mmHg <36 Aorta Name Value Normal Ascending Aorta Ao Root Diameter (MM) 3.56 cm Ao Root Diam Index (MM) 1.88 cm/m2 Aortic Valve Name Value Normal AV Doppler AV Peak Velocity 174.78 cm/s AV Peak Gradient 12 mmHg AV Mean Gradient 6 mmHg AV VTI 35.12 cm AV Area (Cont Eq VTI) 1.71 cm2 >=3.00 AV Area (Cont Eq Luan) 1.87 cm2 AV Regurgitation 2D LVOT Area 3.48 cm2 Ventricles Name Value Normal LV Dimensions 2D/MM IVS Diastolic Thickness (2D) 1.21 cm 0.60-1.00 LVID Diastole (2D) 5.47 cm 4.20-5.80 LVIW Diastolic Thickness (2D) 0.93 cm 0.60-1.00 LVID Systole (2D) 4.51 cm 2.50-4.00 LVOT Diameter 2.10 cm LV Mass (2D Cubed) 231.41 g 88.00-224.00 LV Mass Index (2D Cubed) 0.01 g/cm2 0.00-0.01 Relative Wall Thickness (2D) 0.34 LV Fractional Shortening/Ejection Fraction 2D/MM LV Fractional Shortening (2D) 18 % 25-43 LV EF (2D Teichjoez) 36 % 52-72 LV Diastolic Volume (4C MOD) 121.55 ml LV EF (4C MOD) 43 % LV Diastolic Volume (2C MOD) 122.79 ml LV EF (2C MOD) 38 % LV Diastolic Volume (BP MOD) 123.69 ml 62.00-150.00 LV Diastolic Volume Index (BP MOD) 0.07 l/m2 0.03-0.07 LV Systolic Volume (BP MOD) 74.03 ml 21.00-61.00 LV Systolic Volume Index (BP MOD) 0.04 l/m2 0.01-0.03 LV EF (BP MOD) 40 % 52-72 LV Diastolic Length (4C) 8.23 cm LV Systolic Length (4C) 7.45 cm LV Stroke Volume (4C MOD) 52.73 ml Atria Name Value Normal LA Dimensions LA Dimension (MM) 3.97 cm 3.00-4.10 LA Volume (4C A-L) 55.58 ml LA Volume (BP A-L) 58.82 ml RA Dimensions RA Area (4C) 12.05 cm2 <=18.00 Report Signatures
[2024-06-28] MEDS: PERFLUTREN LIPID MICROSPHERES 1.5 ML VIAL DILUTED TO 10 ML TOTAL VOLUME IV PUSH (08:31)
[2024-06-28] MEDS: SPIRONOLACTONE 25 MG TABLET PO (08:39)
[2024-06-28] MEDS: SACUBITRIL/VALSARTAN 24-26 MG TABLET 1 TAB PO (08:39)
[2024-06-28] MEDS: EMPAGLIFLOZIN 10 MG TABLET PO (08:40)
--- NOTE | 2024-06-28 09:00 | PC.NURSE ---
pt and family made aware that there is no doctor here today to do the pacer per clinical laboratory technologist, pt will be put on the schedule for tomorrow, pt is allowed to resume diet at this time until midnight tonight and then will be put back on npo status
--- NOTE | 2024-06-28 09:58 | P.PNCA_ITS ---
Progress Note: A&P Assessment and Plan (1) AV block: Code(s): I44.30 - Unspecified atrioventricular block Status: Acute Plan Transient complete heart block with syncope History of cardiomyopathy that recovered Left bundle-branch block Plan Holding coreg Transthoracic echocardiogram showed EF 35 - 40% QRS 150ms, therefore may benefit from FABRICATION AND LAYOUT CRAFTSMAN-P and given EF 35%, FABRICATION AND LAYOUT CRAFTSMAN-P vs. BiVICD Continue Entresto, spironolactone under Jardiance. Because we do not offer FABRICATION AND LAYOUT CRAFTSMAN or ICD implantation at this hospital, he has been accepted to [facility] for EP services. Patient requested [facility] has his bowling ball grader, Dr. Demarco is there. Subjective Date/time seen: 06/28/24 09:58 Interval history: Cardiology follow up for syncope, AVB 2nd degree type 2 Feels well today and does not have any specific complaints. No further syncope or pre-syncope Review of Systems Review of Systems: All systems reviewed & are unremarkable except as noted in HPI and below Exam Const: General: comfortable and no acute distress Other: Able to lie flat HENMT: Face/Nose/Sinus: Normal nares present and no epistaxis Mouth: Yes moist mucous membranes Eyes: Sclera: sclerae normal Pupils: Equal, round and reactive pupils present Neck: Neck: supple and no JVD Carotids: no bruits Resp: Auscultation: clear to auscultation bilaterally and lung sounds not diminished Other: No chest wall tenderness Cardio: Rate: regular rate Rhythm: regular rhythm Heart sounds: no gallops, no murmurs and no rubs GI: Auscultation: normal bowel sounds Skin: General skin exam: normal color, rashes and/or lesions noted and no erythema Other: Warm Neuro: Cranial nerves: Yes Equal, round and reactive pupils present Speech: normal speech Other: No obvious focal deficit or facial asymmetry Extrem: General: no edema Other: Normal capillary refills Intact distal pulses. Objective Data Vital Signs Vital Signs: Vital Signs - 24 hr 06/27/24 10:00 06/27/24 12:00 06/27/24 12:00 Temperature 36.8 C Pulse Rate 75 73 Respiratory Rate 20 Blood Pressure 121/56 L Pulse Oximetry 94 Oxygen Delivery Room Air 06/27/24 12:00 06/27/24 14:00 06/27/24 16:00 Temperature 36.6 C Pulse Rate 75 77 72 Respiratory Rate 20 Blood Pressure 118/55 L Pulse Oximetry 98 Oxygen Delivery 06/27/24 16:00 06/27/24 16:00 06/27/24 18:00 Temperature Pulse Rate 76 77 Respiratory Rate Blood Pressure Pulse Oximetry Oxygen Delivery Room Air 06/27/24 20:00 06/27/24 20:00 06/27/24 20:00 Temperature 36.9 C Pulse Rate 73 73 73 Respiratory Rate 16 16 Blood Pressure 143/68 H Pulse Oximetry 99 99 Oxygen Delivery Room Air 06/27/24 21:37 06/27/24 23:30 06/27/24 23:30 Temperature Pulse Rate 74 64 64 Respiratory Rate 16 Blood Pressure Pulse Oximetry 99 Oxygen Delivery Room Air 06/27/24 23:33 06/28/24 02:00 06/28/24 04:00 Temperature 36.8 C 36.6 C Pulse Rate 72 76 74 Respiratory Rate 18 20 Blood Pressure 131/58 L 134/59 L Pulse Oximetry 97 97 Oxygen Delivery 06/28/24 04:00 06/28/24 04:00 06/28/24 05:50 Temperature Pulse Rate 69 69 84 Respiratory Rate 20 Blood Pressure Pulse Oximetry 97 Oxygen Delivery Room Air 06/28/24 07:19 Temperature 37.0 C Pulse Rate 749 H Respiratory Rate 18 Blood Pressure 116/62 Pulse Oximetry 98 Oxygen Delivery Intake/Output Intake/Output: Intake & Output 06/25/24 06/26/24 06/27/24 06/28/24 23:59 23:59 23:59 23:59 Intake Total 370 300 Output Total 1100 450 Balance -730 -150 Meds/Results Medications: Active Medications Generic Name Dose Route Start Last Admin Trade Name Tika PRN Reason Stop Dose Admin Acetaminophen 650 mg 06/26/24 17:38 Acetaminophen 325 Mg Tablet PO Q4H PRN Mild Pain (1-3) or Fever Aspirin 81 mg 06/27/24 21:00 06/27/24 20:24 Aspirin 81 Mg Chewable Tablet PO 81 mg HS PEDRITO Administration Atorvastatin Calcium 10 mg 06/27/24 21:00 06/27/24 20:24 Atorvastatin 10 Mg Tablet PO 10 mg HS PEDRITO Administration Empagliflozin 10 mg 06/28/24 09:00 06/28/24 08:40 Empagliflozin 10 Mg Tablet PO 10 mg DAILY PEDRITO Administration Ondansetron HCl 4 mg 06/26/24 17:38 Ondansetron Inj 4 Mg/2 Ml Vial IV PUSH Q4H PRN Nausea Perflutren Lipid Microsphere 0 ml 06/27/24 11:39 Perflutren Lipid Microspheres 1.5 Ml Vial Diluted To 10 Ml Total Volume IV PUSH 06/30/24 11:39 ONCE PRN adequate visualization Protocol Sacubitril/Valsartan 1 tab 06/27/24 21:00 06/28/24 08:39 Sacubitril/Valsartan 24-26 Mg Tablet PO 1 tab Q12HR PEDRITO Administration Spironolactone 25 mg 06/28/24 09:00 06/28/24 08:39 Spironolactone 25 Mg Tablet PO 25 mg DAILY PEDRITO Administration Radiology Results: ITS Impressions Chest X-Ray 06/26/24 15:56 IMPRESSION: No acute cardiopulmonary process. Head CT 06/26/24 17:23 IMPRESSION: No acute intracranial process. Quality VTE Prophylaxis VTE prophylaxis: mechanical ordered
--- NOTE | 2024-06-28 10:02 | P.PNIM_ITS ---
Progress Note: A&P Assessment and Plan (1) Hypertension: Code(s): I10 - Essential (primary) hypertension Status: Chronic (2) Heart failure: Code(s): I50.9 - Heart failure, unspecified Status: Chronic (3) Left bundle branch block: Code(s): I44.7 - Left bundle-branch block, unspecified Status: Acute (4) AV block: Code(s): I44.30 - Unspecified atrioventricular block Status: Acute (5) Dyslipidemia: Code(s): E78.5 - Hyperlipidemia, unspecified Status: Chronic (6) Syncope and collapse: Code(s): R55 - Syncope and collapse Status: Acute (7) Systolic heart failure: Code(s): I50.20 - Unspecified systolic (congestive) heart failure Status: Acute Plan (1) AV block: Code(s): I44.30 - Unspecified atrioventricular block Status: Acute Assessment and Plan: EKG showed sinus bradycardia, av block type 2 Mobitz 2 Patient has syncope Bed rest air sampling and monitoring Consult inspector advanced composite for pacemaker placement Echo pending (2) Syncope and collapse: Code(s): R55 - Syncope and collapse Status: Acute Assessment and Plan: Cardiogenic syncope due to high-grade AV block Bed rest Telemetry monitoring (3) Hypertension: Code(s): I10 - Essential (primary) hypertension Status: Chronic Assessment and Plan: Stable Avoid beta-shanique and calcium channel shanique before pacemaker placement (4) Dyslipidemia: Code(s): E78.5 - Hyperlipidemia, unspecified Status: Chronic Assessment and Plan: * Resume Atorvastatin when appropriate and when dose is confirmed * Heart Healthy diet when able to eat.(5) Left bundle branch block: Code(s): * Chronic systolic Heart failure: Code(s): I50.9 - Heart failure, unspecified Status: Chronic Assessment and Plan: Reported EF of 35-40% per pt and prior to initiation of Entresto, Jardiance, and Beta blockade was 20%. Repeat echocardiogram 06/28 Summary 1. The left ventricle is normal in size with moderately reduced systolic function. The left ventricular ejection fraction is visually estimated to be35- 40%. 2. Abnormal septal motion consistent with a bundle branch block. 3. The aortic valve is not well visualized otherwise there is no significant valvular disease. Compensated Plan Admit Inpt to IMU NPO SCD's OR tomorrow for pacemaker placement. Subjective Date/time seen: 06/28/24 10:02 Interval history: I saw and examined patient today in presents of patient's family. Patient feels comfortable, denies lightheadedness, chest pain, palpitation, focal weakness, abdomen pain nausea vomiting diarrhea dysuria. Exam Narrative: GENERAL: Pleasant, in no acute distress. Well-nourished. - EYES: EOMI. Anicteric. - HENT: Moist mucous membranes. - LUNGS: Clear to auscultation bilateral ly, no wheezing, rhonchi, or rales. - CARDIOVASCULAR: Regular rate and rhyth m. No murmur. No JVD. - ABDOMEN: Soft, non-tender and non-dist ended. No palpable masses. - EXTREMITIES: No edema. Peripheral puls es 2+. Non-tender. - NEUROLOGIC: No focal neurological defi cits. CN II-XII grossly intact. - PSYCHIATRIC: Awake, Alert and oriented x 3. Appropriate mood and affect. - SKIN: No rashes or lesions. Warm. - LYMPH: No cervical lymphadenopathy. Objective Data Vital Signs Vital Signs: Vital Signs - 24 hr 06/27/24 12:00 06/27/24 12:00 06/27/24 12:00 Temperature 98.3 F Pulse Rate 73 75 Respiratory Rate 20 Blood Pressure 121/56 L Pulse Oximetry 94 Oxygen Delivery Room Air 06/27/24 14:00 06/27/24 16:00 06/27/24 16:00 Temperature 97.9 F Pulse Rate 77 72 Respiratory Rate 20 Blood Pressure 118/55 L Pulse Oximetry 98 Oxygen Delivery Room Air 06/27/24 16:00 06/27/24 18:00 06/27/24 20:00 Temperature 98.5 F Pulse Rate 76 77 73 Respiratory Rate 16 Blood Pressure 143/68 H Pulse Oximetry 99 Oxygen Delivery 06/27/24 20:00 06/27/24 20:00 06/27/24 21:37 Temperature Pulse Rate 73 73 74 Respiratory Rate 16 Blood Pressure Pulse Oximetry 99 Oxygen Delivery Room Air 06/27/24 23:30 06/27/24 23:30 06/27/24 23:33 Temperature 98.3 F Pulse Rate 64 64 72 Respiratory Rate 16 18 Blood Pressure 131/58 L Pulse Oximetry 99 97 Oxygen Delivery Room Air 06/28/24 02:00 06/28/24 04:00 06/28/24 04:00 Temperature 97.8 F Pulse Rate 76 74 69 Respiratory Rate 20 20 Blood Pressure 134/59 L Pulse Oximetry 97 97 Oxygen Delivery Room Air 06/28/24 04:00 06/28/24 05:50 06/28/24 07:19 Temperature 98.6 F Pulse Rate 69 84 749 H Respiratory Rate 18 Blood Pressure 116/62 Pulse Oximetry 98 Oxygen Delivery Intake/Output Intake/Output: Intake & Output 06/25/24 06/26/24 06/27/24 06/28/24 23:59 23:59 23:59 23:59 Intake Total 370 300 Output Total 1100 450 Balance -730 -150 Meds/Results Medications: Active Medications Generic Name Dose Route Start Last Admin Trade Name Freq PRN Reason Stop Dose Admin Acetaminophen 650 mg 06/26/24 17:38 Acetaminophen 325 Mg Tablet PO Q4H PRN Mild Pain (1-3) or Fever Aspirin 81 mg 06/27/24 21:00 06/27/24 20:24 Aspirin 81 Mg Chewable Tablet PO 81 mg HS PEDRITO Administration Atorvastatin Calcium 10 mg 06/27/24 21:00 06/27/24 20:24 Atorvastatin 10 Mg Tablet PO 10 mg HS PEDRITO Administration Empagliflozin 10 mg 06/28/24 09:00 06/28/24 08:40 Empagliflozin 10 Mg Tablet PO 10 mg DAILY PEDRITO Administration Ondansetron HCl 4 mg 06/26/24 17:38 Ondansetron Inj 4 Mg/2 Ml Vial IV PUSH Q4H PRN Nausea Perflutren Lipid Microsphere 0 ml 06/27/24 11:39 Perflutren Lipid Microspheres 1.5 Ml Vial Diluted To 10 Ml Total Volume IV PUSH 06/30/24 11:39 ONCE PRN adequate visualization Protocol Sacubitril/Valsartan 1 tab 06/27/24 21:00 06/28/24 08:39 Sacubitril/Valsartan 24-26 Mg Tablet PO 1 tab Q12HR PEDRITO Administration Spironolactone 25 mg 06/28/24 09:00 06/28/24 08:39 Spironolactone 25 Mg Tablet PO 25 mg DAILY PEDRITO Administration Radiology Results: ITS Impressions Chest X-Ray 06/26/24 15:56 IMPRESSION: No acute cardiopulmonary process. Head CT 06/26/24 17:23 IMPRESSION: No acute intracranial process.
--- NOTE | 2024-06-28 11:51 | IVDEFINITY ---
Prior to administration of IV Definity the patient was educated on the risks and benefits of the imaging enhancing agent including potential adverse side effects. The patient verbalized understanding. Allergies were verified. No exclusion criteria were identified and at least one of the following inclusion criteria were met: 1) physician request, 2) patient technically difficult to image (per the [place] [employer] Echocardi[employer] guidelines of two or more segments not discernable within the apical view), or 3) questionable left ventricular function. ?
--- NOTE | 2024-06-28 15:34 | PC.NURSE ---
pt to be transferred to [facility] per angela guzman, they have accepted pt and we are waiting on a bed at this time
--- NOTE | 2024-06-28 17:34 | PC.NURSE ---
pt left on [facility] at 1733, tx to [facility] bed [phone]
--- NOTE | 2024-06-30 18:22 | P.TS_ITS ---
Transfer Discharge Sum: Prov Provider Date of admission: 06/26/24 17:39 Primary care physician: PHYSICIAN NOT ON STAFF Admitting clinician: Robinson Prado MD Consults: 06/26/24 Consult to Physician Routine Comment: Consulting Provider: Cesario Cat Reason for consultation: High degree AV blockade, pacemaker placement Has provider been notified: Yes DS: Admitting Diagnosis Discharge Date 06/28/24 Admitting Diagnosis (1) Hypertension: Code(s): I10 - Essential (primary) hypertension Status: Chronic (2) Heart failure: Code(s): I50.9 - Heart failure, unspecified Status: Chronic (3) Left bundle branch block: Code(s): I44.7 - Left bundle-branch block, unspecified Status: Acute (4) AV block: Code(s): I44.30 - Unspecified atrioventricular block Status: Acute (5) Dyslipidemia: Code(s): E78.5 - Hyperlipidemia, unspecified Status: Chronic (6) Syncope and collapse: Code(s): R55 - Syncope and collapse Status: Acute (7) Systolic heart failure: Code(s): I50.20 - Unspecified systolic (congestive) heart failure Status: Acute DS: Discharge Diagnosis Discharge Diagnosis (1) Hypertension: Code(s): I10 - Essential (primary) hypertension Status: Chronic (2) Heart failure: Code(s): I50.9 - Heart failure, unspecified Status: Chronic (3) Left bundle branch block: Code(s): I44.7 - Left bundle-branch block, unspecified Status: Acute (4) AV block: Code(s): I44.30 - Unspecified atrioventricular block Status: Acute (5) Dyslipidemia: Code(s): E78.5 - Hyperlipidemia, unspecified Status: Chronic (6) Syncope and collapse: Code(s): R55 - Syncope and collapse Status: Acute (7) Systolic heart failure: Code(s): I50.20 - Unspecified systolic (congestive) heart failure Status: Acute Transfer Discharge Sum: Med Medications Active and Home Medications: Home Medications aspirin 81 mg capsule 81 mg PO HS 06/26/24 [History Confirmed 06/26/24] atorvastatin 10 mg tablet (Lipitor) 10 mg PO HS 06/26/24 [History Confirmed 06/26/24] carvedilol 25 mg tablet (Coreg) 25 mg PO BID 06/26/24 [History Confirmed 0 06/26/24] empagliflozin 10 mg tablet 10 mg PO DAILY 06/26/24 [History Confirmed 06/26/24] sacubitril 49 mg-valsartan 51 mg tablet (Entresto) 0.5 tablet PO BID 06/26/24 [History Confirmed 06/26/24] spironolactone 25 mg tablet (Aldactone) 25 mg PO DAILY 06/26/24 [History Confirmed 06/26/24] Transfer Discharge Sum: Hosp Hospital Course Hospital course: This very pleasant 74 year old male pt with PMH of HTN, HLD, Heart Failure w/last measured EF reportedly 35-40% according to pt but previously 20% prior to that and a known chronic LBBB, comes to the ER by EMS with complaints of having a syncopal episode today at home. Pt endorses that while standing, he became dizzy and lightheaded and fell from the standing position. He has no memory of the event from that point on, but after coming to he felt nauseated and remained dizzy. EMS believed pt to have a 3rd degree heart block, but there was noted association between p-waves and complexes so ER advised no pacing or pharmacological treatment in route. Pt does routinely take Carvedilol BID, but has not taken any since yesterday morning. He denied any acute symptoms of CP, dyspnea, or any other acute complaints other than those mentioned. Pt has no historical data here at this facility for comparison. His Consumer Affairs Manager is Dr. Demarco at [facility]. Pt lives at [facility] and was just here visiting today. He is a non-smoker, does not drink alcohol and does not partake of Illicit substances. His family is accompanying him and all deemed to be reliable historians. In emergency room patient was found to have a pulse in the 40s. EKG demonstrating sinus bradycardia with first-degree AV block and a PVC. No evidence of third-degree heart block is present. Patient's EKG than change spontaneously and repeat EKG demonstrating a left bundle-branch block without any ischemic changes. Labs were queried and are notable for a normal CBC, normal coags, unremarkable metabolic panel, normal lipase and negative troponins. ED physician suspected vasovagal syncope. Cardiology was consulted and after expert review of EKG by Cardiology it is believed that patient actually had an escape rhythm with a high degree AV block. He is being admitted to IMU NPO in this setting for placement of a pacemaker tomorrow by Dr. Shahab Garcia. Pt's home medication list was visualized and he takes: Carvedilol 25 mg BID, Aspirin 81 mg Daily, Jardiance, Entresto 1/2 tab BID, Atorvastatin 10 mg daily, and Spironolactone 25 mg daily. The following med issues have been addressed during hospitalization (1) AV block: Code(s): I44.30 - Unspecified atrioventricular block Status: Acute Assessment and Plan: EKG showed sinus bradycardia, av block type 2 Mobitz 2 Patient has syncope Bed rest satellite project site monitor Consult cabin furnishings installer for pacemaker placement Echo pending (2) Syncope and collapse: Code(s): R55 - Syncope and collapse Status: Acute Assessment and Plan: Cardiogenic syncope due to high-grade AV block Bed rest Telemetry monitoring (3) Hypertension: Code(s): I10 - Essential (primary) hypertension Status: Chronic Assessment and Plan: Stable Avoid beta-shanique and calcium channel shanique before pacemaker placement (4) Dyslipidemia: Code(s): E78.5 - Hyperlipidemia, unspecified Status: Chronic Assessment and Plan: * Resume Atorvastatin when appropriate and when dose is confirmed * Heart Healthy diet when able to eat. (5) Left bundle branch block: Code(s): * Chronic systolic Heart failure: Code(s): I50.9 - Heart failure, unspecified Status: Chronic Assessment and Plan: Reported EF of 35-40% per pt and prior to initiation of Entresto, Jardiance, and Beta blockade was 20%. Repeat echocardiogram 06/28 Summary 1. The left ventricle is normal in size with moderately reduced systolic function. The left ventricular ejection fraction is visually estimated to be35- 40%. 2. Abnormal septal motion consistent with a bundle branch block. 3. The aortic valve is not well visualized otherwise there is no significant valvular disease. Compensated QRS 150ms, therefore may benefit from WAREHOUSE PERSON-P and given EF 35%, WAREHOUSE PERSON-P vs. BiVICD Continue Entresto, spironolactone under Jardiance. Patient is transferred to [facility] for further evaluation and management per cabin furnishings installer request Hospital course uneventful, patient condition is stable and patient is transferred Time Spent with Patient Time attestation: Total time spent providing and/or coordinating transfer services: Exam Narrative: GENERAL: Pleasant, in no acute distress. Well-nourished. - EYES: EOMI. Anicteric. - HENT: Moist mucous membranes. - LUNGS: Clear to auscultation bilateral ly, no wheezing, rhonchi, or rales. - CARDIOVASCULAR: Regular rate and rhyth m. No murmur. No JVD. - ABDOMEN: Soft, non-tender and non-dist ended. No palpable masses. - EXTREMITIES: No edema. Peripheral puls es 2+. Non-tender. - NEUROLOGIC: No focal neurological defi cits. CN II-XII grossly intact. - PSYCHIATRIC: Awake, Alert and oriented x 3. Appropriate mood and affect. - SKIN: No rashes or lesions. Warm. - LYMPH: No cervical lymphadenopathy.
== END 2024-06-28 17:33 | disposition short-term general hospital (02) | DRG 309 ==
LOC: ANHED 17:46 → ANHIMU 19:37
PROVIDERS: Nurse Practitioner Adult Health; Admitting Provider Internal Medicine; Emergency Provider Student in an Organized Health Care Education/Training Program; Visit Provider Hospitalist
DX: I44.2 Atrioventricular block, complete (principal); I50.22 Chronic systolic (congestive) heart failure; E78.5 Hyperlipidemia, unspecified; R55 Syncope and collapse; I11.0 Hypertensive heart disease with heart failure; Z79.82 Long term (current) use of aspirin
CPT/HCPCS: 36415; 70450; 71045; 80053; 83690; 83735; 84484; 85025; 85610; 85730; 93005; 96374; 96375; 99285; A9270; C8929; J2405; Q9957